=== PATIENT | female | born 1940 | race Caucasian/White ===

== ENCOUNTER 2016-08-29 11:17 | Emergency (ER) | payer MEDICARE, BC ==
[2016-08-29 11:44] VITALS: BP 142/79
--- NOTE | 2016-08-29 12:15 | EDM.PDOC ---
ED HPI GI/ABDOMINAL - General Chief Complaint: Gastrointestinal Problem Stated Complaint: LOWER ABD PAIN Time Seen by Provider: 08/29/16 12:05 Source: Reports: Patient, RN notes reviewed History Limitations: Reports: No limitations - History of Present Illness INITIAL COMMENTS - FREE TEXT/NARRATIVE: 76-year-old female presents emergency department today with complaint of left lower quadrant pain, has been going on for the last couple days is progressively getting worse she denies any other symptoms. - Related Data Allergies/ADRs: Allergies Allergy/AdvReac Type Severity Reaction Status Date / Time clindamycin Allergy Severe Joint Pain Verified 12/25/15 02:05 morphine Allergy Severe Anaphylactic Verified 12/25/15 02:05 Shock nystatin Allergy Intermediate Swelling Verified 12/25/15 02:05 acetaminophen [From NyQuil] Allergy Swelling Verified 12/25/15 02:05 aspirin Allergy Other Verified 12/25/15 02:05 dextromethorphan HBr Allergy Swelling Verified 12/25/15 02:05 [From NyQuil] doxylamine succinate Allergy Swelling Verified 12/25/15 02:05 [From NyQuil] gluten Allergy Cannot Verified 12/25/15 02:05 Remember pseudoephedrine HCl Allergy Swelling Verified 12/25/15 02:05 [From NyQuil] codeine AdvReac Severe Vomiting Verified 12/25/15 02:05 Sulfa (Sulfonamide AdvReac Severe Vomiting Verified 12/25/15 02:05 Antibiotics) celecoxib [From Celebrex] AdvReac Intermediate Abdominal Verified 12/25/15 02:05 Pain erythromycin base AdvReac Intermediate Giddiness Verified 12/25/15 02:05 [Erythromycin Base] tramadol HCl [From Ultram] AdvReac Intermediate Vomiting Verified 12/25/15 02:05 furosemide AdvReac Leg Cramps Verified 12/25/15 02:05 rofecoxib [From Vioxx] AdvReac Nausea and Verified 12/25/15 02:05 Vomiting *aloe plant sterols Allergy Unknown Cannot Uncoded 12/25/15 02:05 Remember *elderberry Allergy Unknown Cannot Uncoded 12/25/15 02:05 Remember *grape seed extract Allergy Unknown Swelling Uncoded 12/25/15 02:05 *olive leaf extract Allergy Unknown Cannot Uncoded 12/25/15 02:05 Remember Home Meds: Home Meds Losartan [Cozaar] 50 mg PO DAILY 06/25/13 [History] Metoprolol Succinate 25 mg PO BID 06/25/13 [History] predniSONE [Prednisone] 1 mg PO DAILY 06/25/13 [History] 5-Hydroxytryptophan [5-Htp] 50 mg PO BEDTIME 05/28/14 [History] Acetylcysteine [H-Plujgb-u-Cysteine] 600 mg PO BID 05/28/14 [History] Melba/Cell/Lipas/Malt/Prt/Lac/in [Digestive Enzymes Capsule] 1 each PO BID [History] Biotin 10 mg PO DAILY 05/28/14 [History] Calcium Carbonate [Calcium] 500 mg PO BID 05/28/14 [History] Cholecalciferol (Vitamin D3) [Vitamin D3] 2,000 unit PO BID 05/28/14 [History] Glucosamine Sulfate 500 mg PO TID 05/28/14 [History] Lactobac Cmb #3/Fos/Pantethine [Probiotic & Acidophilus] 1 each PO BID 05/28/14 [History] Lycopene 10 mg PO DAILY 05/28/14 [History] Magnesium Citrate [Citroma] 300 ml PO DAILY 05/28/14 [History] Malic Acid 800 mg PO BID 05/28/14 [History] Methylsulfonylmethane [MSM] 1,000 mg PO TID 05/28/14 [History] Milk Thistle Seed Extract [Milk Thistle] 200 mg PO BID 05/28/14 [History] Multivitamin [Multi-Vitamin Daily] 1 each PO DAILY 05/28/14 [History] Nattokinaise 1 cap PO DAILY 05/28/14 [History] Nitroglycerin [Nitrostat] 0.4 mg SL ASDIRECTED PRN 05/28/14 [History] [place]-3 Fatty Acids [[place]-3] 1,000 mg PO DAILY 05/28/14 [History] Strontium Gluconate 680 mg PO DAILY 05/28/14 [History] Taurine 500 mg PO BID 05/28/14 [History] Turmeric [Curcumin] 1 gm MC BID 05/28/14 [History] Ubidecarenone [Coenzyme Q10] 100 mg PO DAILY 05/28/14 [History] Vitamin E Mixed [Vitamin E] 400 unit PO DAILY 05/28/14 [History] guaiFENesin [Guaifenesin] 400 mg PO TID 05/28/14 [History] *Nattokinaise Plus K2 50mg 100 mg PO DAILY 12/25/15 [History] Hyalur Ac/Chond Sul/Colg II/AA [Hyaluronic Acid 40 MG] 1 each PO BID 12/25/15 [ History] Melatonin 3 mg PO BEDTIME 12/25/15 [History] Ondansetron [Zofran ODT] 4 mg PO Q6H PRN #15 tab.dis 12/25/15 [Rx] Past Medical History HEENT History: Reports: Epistaxis, Impaired vision Cardiovascular History: Reports: Afib, CAD, High cholesterol, Hypertension, Other (see below) Other Cardiovascular History: states leaking aortic valve Respiratory History: Reports: SOB Gastrointestinal History: Reports: GERD, Hiatal hernia 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: Musculoskeletal History: Reports: Fibromyalgia, Osteoarthritis, Other (see below ) Other Musculoskeletal History: polymyalgia Endocrine/Metabolic History: Reports: Hypothyroidism Hematologic History: Reports: Blood transfusion(s) - Infectious Disease History Infectious Disease History: Reports: Chicken pox, Measles, Mumps - Past Surgical History HEENT Surgical History: Reports: Oral surgery, Tonsillectomy Cardiovascular Surgical History: Reports: Coronary artery stent, Vascular surgery GI Surgical History: Reports: Appendectomy, Colon Neurological Surgical History: Reports: Lumbar spine Social & Family History - Family History Psychiatric: Reports: Bipolar - Tobacco Use Smoking Status *Q: Never Smoker Second Hand Smoke Exposure: No - Caffeine Use Caffeine Use: Reports: Tea - Alcohol Use Days Per Week of Alcohol Use: 0 - Recreational Drug Use Recreational Drug Use: No ED ROS GENERAL - Review of Systems Review Of Systems: See Below Constitutional: Reports: no symptoms HEENT: Reports: No symptoms Respiratory: Reports: No Symptoms Cardiovascular: Reports: No symptoms GI/Abdominal: Reports: Abdominal pain, Flatus. Denies: Bloody stool, Constipation, Diarrhea, Nausea, Vomiting : Reports: no symptoms Musculoskeletal: Reports: no symptoms Skin: Reports: no symptoms ED EXAM, GI/ABD - Physical Exam Exam: See Below Text/Narrative:: General: Female, not in any distress, alert and oriented x3 HEENT: head is atraumatic normocephalic, eyes pupils equal round reactive to light and accommodation sclera clear no conjunctivitis appreciated. Ears tympanic membranes clear and benjamin landmarks and light reflex are present bilaterally canals are clear. Nose no septal deviation, nares are clear, no blood present. Mouth mucosa is moist and pink no erythema or exudate noted in soft palate, tongue is midline uvula is midline, dentition is intact. Neck: Supple no thyromegaly no tracheal deviation. Nodes: Cervical nodes subclavicular nodes nontender no palpable lymphadenopathy noted. Lungs: clear to auscultation bilaterally with symmetrical respirations, no adventitious noise appreciated. CV: Regular rate and rhythm S1 and S2 appreciated no murmurs rubs or gallops noted. Abdomen: Soft, tender left lower quadrant, no palpable masses or organomegaly appreciated, no distention no guarding bowel sounds are present, surgical scars clean dry and intact. Neuro: Cranial nerves II through XII grossly intact Skin: Warm and dry, intact Extremities: No lower extremity edema appreciated Course - Vital Signs Last Recorded V/S: Last Vital Signs Temp 97.0 F 08/29/16 11:43 Pulse 74 08/29/16 11:43 Resp 16 08/29/16 11:43 BP 142/79 H 08/29/16 11:43 Pulse Ox 93 L 08/29/16 11:43 - Orders/Labs/Meds Orders: Active Orders 24 hr Category Date Time Status UA W/MICROSCOPIC [URIN] Urgent Lab 08/29/16 12:12 Uncollected Labs: Laboratory Tests 08/29/16 08/29/16 Range/Units 12:16 12:16 WBC 7.2 (4.5-11.0) K/uL RBC 4.65 (3.30-5.50) M/uL Hgb 14.0 (12.0-15.0) g/dL Hct 42.8 (36.0-48.0) % MCV 92 (80-98) fL MCH 30 (27-31) pg MCHC 33 (32-36) % Plt Count 200 (150-400) K/uL Neut % (Auto) 70 H (36-66) % Lymph % (Auto) 19 L (24-44) % Early % (Auto) 10 H (2-6) % Eos % (Auto) 1 L (2-4) % Baso % (Auto) 0 (0-1) % Sodium 143 (140-148) mmol/L Potassium 3.9 (3.6-5.2) mmol/L Chloride 105 (100-108) mmol/L Carbon Dioxide 31 (21-32) mmol/L Anion Gap 7.5 (5.0-14.0) mmol/L BUN 14 (7-18) mg/dL Creatinine 0.8 (0.6-1.0) mg/dL Est Cr Clr Drug Dosing 54.55 mL/min Estimated GFR (MDRD) > 60 (>60) Glucose 112 H (74-106) mg/dL Calcium 9.1 (8.5-10.1) mg/dL Total Bilirubin 0.5 (0.2-1.0) mg/dL AST 19 (15-37) U/L ALT 27 (12-78) U/L Alkaline Phosphatase 46 (46-116) U/L Total Protein 6.9 (6.4-8.2) g/dL Albumin 3.3 L (3.4-5.0) g/dL Globulin 3.6 H (2.3-3.5) g/dL Albumin/Globulin Ratio 0.9 L (1.2-2.2) Lipase 151 (73-393) U/L Departure - Departure Time of Disposition: 13:30 Disposition: Home, Self-Care 01 Condition: good Clinical Impression: Epiploic appendagitis Forms: ED Department Discharge Additional Instructions: Take ibuprofen 600 mg 3 times a day for the next 5 days, Please followup with your primary care provider in 3-5 days if not better, please call return to the emergency department with worsening of symptoms. - My Orders Last 24 Hours: My Active Orders 08/29/16 12:12 UA W/MICROSCOPIC [URIN] Urgent - Assessment/Plan Last 24 Hours: My Active Orders 08/29/16 12:12 UA W/MICROSCOPIC [URIN] Urgent Plan: Assessment Acuity = acute Site and laterality = epiplotic appendicitis Etiology = unknown etiology Manifestations = left lower quadrant pain Location of injury = from Lab values = CBC, CMP within normal limits CT scan describes a lesion about Plan Plan to treat with ibuprofen 600 mg 2 times a day follow up with primary care in 3-5 days if no improvement Patient was in agreement with the plan all questions were answered, they were instructed to return to the emergency department or call for worsening symptoms. This note was dictated using [employer] voice recognition software please call with any questions.
--- NOTE | 2016-08-29 12:50 | CT ---
CT abdomen and pelvis without contrast. Total DLP 959. Findings: No focal consolidation. Hepatomegaly. Small hypodensity within the liver. Gallbladder with in normal limits. This is similar compared to remote exam. No hydronephrosis. Adrenal glands are wit hin normal limits. Spleen within normal limits. Pancreas within normal limits. Post surgical changes within the small bowel. Terminal ileum within normal limits. The appendix is nonvisualized. There i s stranding minimal amount of fluid about a focal region of fat adjacent to the sigmoid colon.No rebeca e air. Small umbilical hernia with colon protruding into it. Bladder unremarkable. Atherosclerotic n onaneurysmal aorta. Degenerative changes of both hips. Impression: 1. Findings indicate acute epiploic appendagitis at the sigmoid colon. 2. Hepatomegaly.
== END 2016-08-29 13:42 | disposition home or self-care (01) ==
LOC: JP.ED 11:17
DX: K63.89 Other specified diseases of intestine (principal); I48.91 Unspecified atrial fibrillation; I25.10 Atherosclerotic heart disease of native coronary artery without angina pectoris; E78.00 Pure hypercholesterolemia, unspecified; I10 Essential (primary) hypertension; K21.9 Gastro-esophageal reflux disease without esophagitis; K44.9 Diaphragmatic hernia without obstruction or gangrene; M79.7 Fibromyalgia; M19.90 Unspecified osteoarthritis, unspecified site; E03.9 Hypothyroidism, unspecified; Z88.8 Allergy status to other drugs, medicaments and biological substances; Z79.899 Other long term (current) drug therapy; Z95.5 Presence of coronary angioplasty implant and graft
CPT/HCPCS: 36415; 74176; 74176-26; 80053; 83690; 85025; 99283; 99284-25

== ENCOUNTER 2017-05-05 13:23 | Emergency (ER) | payer MEDICARE, BC ==
[2017-05-05] MEDS ORDERED: Sodium Chloride 0.9% 1,000 ML IV SCH (14:30)
--- NOTE | 2017-05-05 15:39 | EDM.PDOC ---
ED HPI GENERAL MEDICAL PROBLEM - General Chief Complaint: Chest Pain Stated Complaint: A-FIB Time Seen by Provider: 05/05/17 13:45 Source of Information: Reports: Patient History Limitations: Reports: No Limitations - History of Present Illness INITIAL COMMENTS - FREE TEXT/NARRATIVE: pt developed an episode last nit when she had chest pain at about a 8 and she felt like she was back in atrial fib. She does have a past history of atrial fib. She did not get sweaty. She felt like the pain lasted for a while and then she went to bed and slept all nite. She got up this am she felt like her rate was about 120. She was slightly sob. She did not have pleuritic chest pain. She had a stress test slightly over 1 year ago and it was normal Onset: Other ( last nite her rate was quite rapid. ) Duration: Hour(s): Location: Reports: Chest, Other ( rapid heart beat. ) Associated Symptoms: Reports: Chest Pain, Shortness of Breath Chest Pain Score (Numeric/FACES): 2 - Related Data Allergies Allergy/AdvReac Type Severity Reaction Status Date / Time clindamycin Allergy Severe Joint Pain Verified 12/25/15 02:05 morphine Allergy Severe Anaphylactic Verified 12/25/15 02:05 Shock nystatin Allergy Intermediate Swelling Verified 12/25/15 02:05 acetaminophen [From NyQuil] Allergy Swelling Verified 12/25/15 02:05 aspirin Allergy Other Verified 12/25/15 02:05 dextromethorphan HBr Allergy Swelling Verified 12/25/15 02:05 [From NyQuil] doxylamine succinate Allergy Swelling Verified 12/25/15 02:05 [From NyQuil] gluten Allergy Cannot Verified 12/25/15 02:05 Remember pseudoephedrine HCl Allergy Swelling Verified 12/25/15 02:05 [From NyQuil] codeine AdvReac Severe Vomiting Verified 12/25/15 02:05 Sulfa (Sulfonamide AdvReac Severe Vomiting Verified 12/25/15 02:05 Antibiotics) celecoxib [From Celebrex] AdvReac Intermediate Abdominal Verified 12/25/15 02:05 Pain erythromycin base AdvReac Intermediate Giddiness Verified 12/25/15 02:05 [Erythromycin Base] tramadol HCl [From Ultram] AdvReac Intermediate Vomiting Verified 12/25/15 02:05 furosemide AdvReac Leg Cramps Verified 12/25/15 02:05 rofecoxib [From Vioxx] AdvReac Nausea and Verified 12/25/15 02:05 Vomiting *aloe plant sterols Allergy Unknown Cannot Uncoded 12/25/15 02:05 Remember *elderberry Allergy Unknown Cannot Uncoded 12/25/15 02:05 Remember *grape seed extract Allergy Unknown Swelling Uncoded 12/25/15 02:05 *olive leaf extract Allergy Unknown Cannot Uncoded 12/25/15 02:05 Remember Home Meds: Home Meds Losartan [Cozaar] 50 mg PO DAILY 06/25/13 [History] Metoprolol Succinate 25 mg PO BID 06/25/13 [History] predniSONE [Prednisone] 1 mg PO DAILY 06/25/13 [History] 5-Hydroxytryptophan [5-Htp] 50 mg PO BEDTIME 05/28/14 [History] Acetylcysteine [U-Kgauxz-h-Cysteine] 600 mg PO BID 05/28/14 [History] Melba/Cell/Lipas/Malt/Prt/Lac/in [Digestive Enzymes Capsule] 1 each PO BID [History] Biotin 10 mg PO DAILY 05/28/14 [History] Calcium Carbonate [Calcium] 500 mg PO BID 05/28/14 [History] Cholecalciferol (Vitamin D3) [Vitamin D3] 2,000 unit PO BID 05/28/14 [History] Glucosamine Sulfate 500 mg PO TID 05/28/14 [History] Lactobac Cmb #3/Fos/Pantethine [Probiotic & Acidophilus] 1 each PO BID 05/28/14 [History] Lycopene 10 mg PO DAILY 05/28/14 [History] Magnesium Citrate [Citroma] 300 ml PO DAILY 05/28/14 [History] Malic Acid 800 mg PO BID 05/28/14 [History] Methylsulfonylmethane [MSM] 1,000 mg PO TID 05/28/14 [History] Milk Thistle Seed Extract [Milk Thistle] 200 mg PO BID 05/28/14 [History] Multivitamin [Multi-Vitamin Daily] 1 each PO DAILY 05/28/14 [History] Nattokinaise 1 cap PO DAILY 05/28/14 [History] Nitroglycerin [Nitrostat] 0.4 mg SL ASDIRECTED PRN 05/28/14 [History] [place]-3 Fatty Acids [[place]-3] 1,000 mg PO DAILY 05/28/14 [History] Strontium Gluconate 680 mg PO DAILY 05/28/14 [History] Taurine 500 mg PO BID 05/28/14 [History] Turmeric [Curcumin] 1 gm MC BID 05/28/14 [History] Ubidecarenone [Coenzyme Q10] 100 mg PO DAILY 05/28/14 [History] Vitamin E Mixed [Vitamin E] 400 unit PO DAILY 05/28/14 [History] guaiFENesin [Guaifenesin] 400 mg PO TID 05/28/14 [History] *Nattokinaise Plus K2 50mg 100 mg PO DAILY 12/25/15 [History] Hyalur Ac/Chond Sul/Colg II/AA [Hyaluronic Acid 40 MG] 1 each PO BID 12/25/15 [ History] Melatonin 3 mg PO BEDTIME 12/25/15 [History] Past Medical History HEENT History: Reports: Epistaxis, Impaired Vision Cardiovascular History: Reports: Afib, CAD, High Cholesterol, Hypertension, Other (See Below) Other Cardiovascular History: states leaking aortic valve Respiratory History: Reports: SOB Gastrointestinal History: Reports: GERD, Hiatal Hernia 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: Musculoskeletal History: Reports: Fibromyalgia, Osteoarthritis, Other (See Below ) Other Musculoskeletal History: polymyalgia Endocrine/Metabolic History: Reports: Hypothyroidism Hematologic History: Reports: Blood Transfusion(s) - Infectious Disease History Infectious Disease History: Reports: Chicken Pox, Measles, Mumps - Past Surgical History HEENT Surgical History: Reports: Oral Surgery, Tonsillectomy Cardiovascular Surgical History: Reports: Coronary Artery Stent, Vascular Surgery Neurological Surgical History: Reports: Lumbar Spine Social & Family History - Family History Psychiatric: Reports: Bipolar - Tobacco Use Smoking Status *Q: Never Smoker Second Hand Smoke Exposure: No - Caffeine Use Caffeine Use: Reports: Coffee - Alcohol Use Days Per Week of Alcohol Use: 0 - Recreational Drug Use Recreational Drug Use: No ED ROS GENERAL - Review of Systems Review Of Systems: See Below Constitutional: Reports: No Symptoms HEENT: Reports: No Symptoms Respiratory: Reports: Shortness of Breath Cardiovascular: Reports: Chest Pain, Other ( the pain lasted for about 1 hour. ) Endocrine: Reports: No Symptoms GI/Abdominal: Reports: No Symptoms : Reports: No Symptoms Musculoskeletal: Reports: No Symptoms Skin: Reports: No Symptoms ED EXAM, GENERAL - Physical Exam Exam: See Below Free Text/Narrative:: pt arrived stating that she had a rapid rhythm and some chest pain last nite. She has very little discomfort at this time. She has a heart rate of 68. Exam Limited By: No Limitations General Appearance: Alert, No Apparent Distress, Anxious Ears: Normal TMs Nose: Normal Inspection Throat/Mouth: Normal Inspection Head: Atraumatic Neck: Normal Inspection Respiratory/Chest: No Respiratory Distress, Other ( Pt has no pleuritic chest pain) Cardiovascular: Regular Rate, Rhythm, Other ( rate is 68 with a sinus rhythm) GI/Abdominal: Soft, Non-Tender (Female) Exam: Deferred Rectal (Female) Exam: Deferred Back Exam: Normal Inspection Extremities: Normal Inspection, Other ( no swelling of leg tenderness. ) Neurological: Alert, Oriented, Normal Cognition Psychiatric: Normal Affect Course - Vital Signs Last Recorded V/S: Last Vital Signs Temp 36.7 C 05/05/17 13:46 Pulse 60 05/05/17 16:10 Resp 14 05/05/17 16:10 BP 178/86 H 05/05/17 16:10 Pulse Ox 98 05/05/17 16:10 - Orders/Labs/Meds Orders: Active Orders 24 hr Category Date Time Status Chest 1V Frontal [CR] Stat Exams 05/05/17 15:04 Taken Labs: Laboratory Tests 05/05/17 05/05/17 05/05/17 Range/Units 13:35 13:45 13:45 WBC 9.5 (4.5-11.0) K/uL RBC 5.08 (3.30-5.50) M/uL Hgb 15.1 H (12.0-15.0) g/dL Hct 46.3 (36.0-48.0) % MCV 91 (80-98) fL MCH 30 (27-31) pg MCHC 33 (32-36) % Plt Count 257 (150-400) K/uL Neut % (Auto) 71 H (36-66) % Lymph % (Auto) 20 L (24-44) % Lee % (Auto) 9 H (2-6) % Eos % (Auto) 1 L (2-4) % Baso % (Auto) 0 (0-1) % PT (9.5-12.0) sec INR (0.80-1.20) APTT (27.0-36.0) sec D-Dimer, Quantitative (0.0-400.0) ng/mL Sodium 142 (140-148) mmol/L Potassium 3.9 (3.6-5.2) mmol/L Chloride 107 (100-108) mmol/L Carbon Dioxide 26 (21-32) mmol/L Anion Gap 8.6 (5.0-14.0) mmol/L BUN 20 H (7-18) mg/dL Creatinine 0.9 (0.6-1.0) mg/dL Est Cr Clr Drug Dosing 47.45 mL/min Estimated GFR (MDRD) > 60 (>60) Glucose 101 (74-106) mg/dL Calcium 9.5 (8.5-10.1) mg/dL Total Bilirubin 0.4 (0.2-1.0) mg/dL AST 26 (15-37) U/L ALT 32 (12-78) U/L Alkaline Phosphatase 65 (46-116) U/L Creatine Kinase 81 (26-192) U/L Troponin I 0.022 (0.000-0.056) ng/mL Total Protein 7.0 (6.4-8.2) g/dL Albumin 3.5 (3.4-5.0) g/dL Globulin 3.5 (2.3-3.5) g/dL Albumin/Globulin Ratio 1.0 L (1.2-2.2) Urine Color Urine Appearance Urine pH (4.5-8.0) Ur Specific [place] (1.008-1.030) Urine Protein (NEGATIVE) mg/dL Urine Glucose (UA) (NEGATIVE) mg/dL Urine Ketones (NEGATIVE) mg/dL Urine Occult Blood (NEGATIVE) Urine Nitrite (NEGATIVE) Urine Bilirubin (NEGATIVE) Urine Urobilinogen (NORMAL) mg/dL Ur Leukocyte Esterase (NEGATIVE) Urine RBC (0-5) Urine WBC (0-5) Ur Epithelial Cells Amorphous Sediment Urine Bacteria Urine Mucus 05/05/17 05/05/17 05/05/17 Range/Units 13:45 15:38 15:38 WBC (4.5-11.0) K/uL RBC (3.30-5.50) M/uL Hgb (12.0-15.0) g/dL Hct (36.0-48.0) % MCV (80-98) fL MCH (27-31) pg MCHC (32-36) % Plt Count (150-400) K/uL Neut % (Auto) (36-66) % Lymph % (Auto) (24-44) % Lee % (Auto) (2-6) % Eos % (Auto) (2-4) % Baso % (Auto) (0-1) % PT 11.0 (9.5-12.0) sec INR 1.03 (0.80-1.20) APTT 23.8 L (27.0-36.0) sec D-Dimer, Quantitative 676 H (0.0-400.0) ng/mL Sodium (140-148) mmol/L Potassium (3.6-5.2) mmol/L Chloride (100-108) mmol/L Carbon Dioxide (21-32) mmol/L Anion Gap (5.0-14.0) mmol/L BUN (7-18) mg/dL Creatinine (0.6-1.0) mg/dL Est Cr Clr Drug Dosing mL/min Estimated GFR (MDRD) (>60) Glucose (74-106) mg/dL Calcium (8.5-10.1) mg/dL Total Bilirubin (0.2-1.0) mg/dL AST (15-37) U/L ALT (12-78) U/L Alkaline Phosphatase (46-116) U/L Creatine Kinase (26-192) U/L Troponin I (0.000-0.056) ng/mL Total Protein (6.4-8.2) g/dL Albumin (3.4-5.0) g/dL Globulin (2.3-3.5) g/dL Albumin/Globulin Ratio (1.2-2.2) Urine Color Yellow Urine Appearance Cloudy Urine pH 5.0 (4.5-8.0) Ur Specific [place] 1.015 (1.008-1.030) Urine Protein Negative (NEGATIVE) mg/dL Urine Glucose (UA) Normal (NEGATIVE) mg/dL Urine Ketones Negative (NEGATIVE) mg/dL Urine Occult Blood Negative (NEGATIVE) Urine Nitrite Negative (NEGATIVE) Urine Bilirubin Negative (NEGATIVE) Urine Urobilinogen Normal (NORMAL) mg/dL Ur Leukocyte Esterase Large (NEGATIVE) Urine RBC 0-5 (0-5) Urine WBC 50-75 H (0-5) Ur Epithelial Cells Many Amorphous Sediment Not seen Urine Bacteria Moderate Urine Mucus Rare 05/05/17 Range/Units 15:38 WBC (4.5-11.0) K/uL RBC (3.30-5.50) M/uL Hgb (12.0-15.0) g/dL Hct (36.0-48.0) % MCV (80-98) fL MCH (27-31) pg MCHC (32-36) % Plt Count (150-400) K/uL Neut % (Auto) (36-66) % Lymph % (Auto) (24-44) % Lee % (Auto) (2-6) % Eos % (Auto) (2-4) % Baso % (Auto) (0-1) % PT (9.5-12.0) sec INR (0.80-1.20) APTT (27.0-36.0) sec D-Dimer, Quantitative (0.0-400.0) ng/mL Sodium (140-148) mmol/L Potassium (3.6-5.2) mmol/L Chloride (100-108) mmol/L Carbon Dioxide (21-32) mmol/L Anion Gap (5.0-14.0) mmol/L BUN (7-18) mg/dL Creatinine (0.6-1.0) mg/dL Est Cr Clr Drug Dosing mL/min Estimated GFR (MDRD) (>60) Glucose (74-106) mg/dL Calcium (8.5-10.1) mg/dL Total Bilirubin (0.2-1.0) mg/dL AST (15-37) U/L ALT (12-78) U/L Alkaline Phosphatase (46-116) U/L Creatine Kinase (26-192) U/L Troponin I 0.022 (0.000-0.056) ng/mL Total Protein (6.4-8.2) g/dL Albumin (3.4-5.0) g/dL Globulin (2.3-3.5) g/dL Albumin/Globulin Ratio (1.2-2.2) Urine Color Urine Appearance Urine pH (4.5-8.0) Ur Specific [place] (1.008-1.030) Urine Protein (NEGATIVE) mg/dL Urine Glucose (UA) (NEGATIVE) mg/dL Urine Ketones (NEGATIVE) mg/dL Urine Occult Blood (NEGATIVE) Urine Nitrite (NEGATIVE) Urine Bilirubin (NEGATIVE) Urine Urobilinogen (NORMAL) mg/dL Ur Leukocyte Esterase (NEGATIVE) Urine RBC (0-5) Urine WBC (0-5) Ur Epithelial Cells Amorphous Sediment Urine Bacteria Urine Mucus Meds: Medications Discontinued Medications Generic Name Dose Route Start Last Admin Trade Name Freq PRN Reason Stop Dose Admin Sodium Chloride 1,000 mls @ 999 mls/hr 05/05/17 14:30 05/05/17 14:30 Normal Saline IV 999 mls/hr ASDIRECTED MARCI Administration - Re-Assessments/Exams Free Text/Narrative Re-Assessment/Exam: 05/05/17 16:28 Pt had 2 trops while here and each was normal. her rhythm remained stable. Her chest xray looked good. Her ddimer was not sigficantly elevated. She was walked and her rate and rhythm was good. Departure - Departure Time of Disposition: 16:29 Disposition: Home, Self-Care 01 Condition: Fair Clinical Impression: Episodic atrial fibrillation, Atypical chest pain Instructions: Nonspecific Chest Pain Referrals: Seth Veliz MD [Primary Care Provider] - Forms: ED Department Discharge Care Plan Goals: Contact industrial education instructor in [place]. Pt needs a event recorder and a repeat stress susy, cont same meds. - My Orders Last 24 Hours: My Active Orders 05/05/17 15:04 Chest 1V Frontal [CR] Stat - Assessment/Plan Last 24 Hours: My Active Orders 05/05/17 15:04 Chest 1V Frontal [CR] Stat
[2017-05-05 16:12] VITALS: BP 178/86
--- NOTE | 2017-05-07 09:49 | CR ---
Chest 1V Frontal HISTORY: Chest pain COMPARISON: 08/15/2010 CT scan and chest radiograph 09/16/2010. FINDINGS: Slightly rotated film. Cardiac size is stable. No focal infiltrates or effusions. No acute congestive change.
== END 2017-05-05 16:36 | disposition home or self-care (01) ==
LOC: JP.ED 13:23
DX: I48.91 Unspecified atrial fibrillation (principal); R07.89 Other chest pain; E78.00 Pure hypercholesterolemia, unspecified; I10 Essential (primary) hypertension; K21.9 Gastro-esophageal reflux disease without esophagitis; Z88.5 Allergy status to narcotic agent; Z88.8 Allergy status to other drugs, medicaments and biological substances; Z88.2 Allergy status to sulfonamides; Z79.899 Other long term (current) drug therapy
CPT/HCPCS: 36415; 71010; 80053; 81001; 82550; 84484; 85025; 85379; 85610; 85730; 96360; 99285; J7040; 99284

== ENCOUNTER 2017-08-30 18:40 | Emergency (ER) | payer MEDICARE, BC ==
--- NOTE | 2017-08-30 19:58 | EDM.PDOC ---
ED HPI GENERAL MEDICAL PROBLEM - General Chief Complaint: Cardiovascular Problem Stated Complaint: AFIB Time Seen by Provider: 08/30/17 19:15 Source of Information: Reports: Patient History Limitations: Reports: No Limitations - History of Present Illness INITIAL COMMENTS - FREE TEXT/NARRATIVE: pt arrived with a history of going into a rapid rhythm in the middle of the nite. At 3 pm she felt like her rhythm changed about 3 pm. Onset: Other (last nite. ) Duration: Hour(s): Location: Reports: Chest Associated Symptoms: Reports: Other (rapid rhythm) Denies Pain Score (Numeric/FACES): 0 - Related Data Allergies Allergy/AdvReac Type Severity Reaction Status Date / Time clindamycin Allergy Severe Joint Pain Verified 08/30/17 19:17 morphine Allergy Severe Anaphylactic Verified 08/30/17 19:17 Shock nystatin Allergy Intermediate Swelling Verified 08/30/17 19:17 acetaminophen [From NyQuil] Allergy Swelling Verified 12/25/15 02:05 aspirin Allergy Other Verified 08/30/17 19:17 casein Allergy Edema Verified 08/30/17 19:17 dextromethorphan HBr Allergy Swelling Verified 08/30/17 19:17 [From NyQuil] doxylamine succinate Allergy Swelling Verified 08/30/17 19:17 [From NyQuil] gluten Allergy Vomiting Verified 08/30/17 19:17 pseudoephedrine HCl Allergy Swelling Verified 08/30/17 19:17 [From NyQuil] codeine AdvReac Severe Vomiting Verified 08/30/17 19:17 Sulfa (Sulfonamide AdvReac Severe Vomiting Verified 08/30/17 19:17 Antibiotics) celecoxib [From Celebrex] AdvReac Intermediate Abdominal Verified 08/30/17 19:17 Pain erythromycin base AdvReac Intermediate Giddiness Verified 08/30/17 19:17 [Erythromycin Base] tramadol HCl [From Ultram] AdvReac Intermediate Vomiting Verified 08/30/17 19:17 furosemide AdvReac Leg Cramps Verified 08/30/17 19:17 rofecoxib [From Vioxx] AdvReac Nausea and Verified 08/30/17 19:17 Vomiting *aloe plant sterols Allergy Unknown Cannot Uncoded 12/25/15 02:05 Remember *elderberry Allergy Unknown Cannot Uncoded 12/25/15 02:05 Remember *grape seed extract Allergy Unknown Swelling Uncoded 12/25/15 02:05 *olive leaf extract Allergy Unknown Cannot Uncoded 12/25/15 02:05 Remember Home Meds: Home Meds predniSONE [Prednisone] 1 mg PO DAILY 06/25/13 [History] 5-Hydroxytryptophan [5-Htp] 100 mg PO BID 05/28/14 [History] Calcium Carbonate [Calcium] 500 mg PO BID 05/28/14 [History] Glucosamine Sulfate 500 mg PO TID 05/28/14 [History] Nitroglycerin [Nitrostat] 0.4 mg SL ASDIRECTED PRN 05/28/14 [History] Ubidecarenone [Coenzyme Q10] 100 mg PO BID 05/28/14 [History] guaiFENesin [Guaifenesin] 400 mg PO TID 05/28/14 [History] *Estriol/Progesterone 1 tab PO BID 08/30/17 [History] *[place] Oil 1 cap PO BID 08/30/17 [History] Aspirin [Halfprin] 1 tab PO DAILY 08/30/17 [History] Clopidogrel [Plavix] 1 tab PO DAILY 08/30/17 [History] L.acidoph,Paracasei, B.lactis [Probiotic] 1 tab PO BID 08/30/17 [History] Magnesium Citrate 400 mg PO DAILY 08/30/17 [History] Metoprolol Succinate [Toprol XL 100mg] 1 tab PO DAILY 08/30/17 [History] Multivitamin with Minerals [Multiple Vitamin] 1 tab PO DAILY 08/30/17 [History] Warfarin [Coumadin] 3.75 tab PO DAILY 08/30/17 [History] Warfarin [Coumadin] 5 mg PO DAILY 08/30/17 [History] atorvaSTATin [Lipitor] 1 tab PO DAILY 08/30/17 [History] Past Medical History HEENT History: Reports: Epistaxis, Impaired Vision Cardiovascular History: Reports: Afib, CAD, High Cholesterol, Hypertension, Other (See Below) Other Cardiovascular History: states leaking aortic valve Respiratory History: Reports: SOB Gastrointestinal History: Reports: GERD, Hiatal Hernia 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: Musculoskeletal History: Reports: Fibromyalgia, Osteoarthritis, Other (See Below ) Other Musculoskeletal History: polymyalgia Endocrine/Metabolic History: Reports: Hypothyroidism Hematologic History: Reports: Anticoagulation Therapy, Blood Transfusion(s) - Infectious Disease History Infectious Disease History: Reports: Chicken Pox, Measles, Mumps - Past Surgical History HEENT Surgical History: Reports: Oral Surgery, Tonsillectomy Cardiovascular Surgical History: Reports: Coronary Artery Stent, Vascular Surgery GI Surgical History: Reports: Other (See Below) Other GI Surgeries/Procedures: 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 Neurological Surgical History: Reports: Lumbar Spine Social & Family History - Family History Psychiatric: Reports: Bipolar - Tobacco Use Smoking Status *Q: Never Smoker Second Hand Smoke Exposure: No - Caffeine Use Caffeine Use: Reports: Coffee - Alcohol Use Days Per Week of Alcohol Use: 0 - Recreational Drug Use Recreational Drug Use: No ED ROS GENERAL - Review of Systems Review Of Systems: See Below Constitutional: Reports: No Symptoms HEENT: Reports: No Symptoms Respiratory: Reports: No Symptoms Cardiovascular: Reports: No Symptoms Endocrine: Reports: No Symptoms GI/Abdominal: Reports: No Symptoms : Reports: No Symptoms Musculoskeletal: Reports: No Symptoms Skin: Reports: No Symptoms ED EXAM, GENERAL - Physical Exam Exam: See Below Free Text/Narrative:: pt arrived with a history of several hours of rapid heart beat. She thinks about 3 pm this changed. She is in a sinus rhytm on arrival. Exam Limited By: No Limitations General Appearance: Alert, Anxious Ears: Normal TMs Nose: Normal Inspection Throat/Mouth: Normal Inspection Head: Atraumatic Neck: Normal Inspection Respiratory/Chest: No Respiratory Distress Cardiovascular: Regular Rate, Rhythm, Other ( rate is 60-70. ) GI/Abdominal: Soft, Non-Tender (Female) Exam: Deferred Rectal (Female) Exam: Deferred Back Exam: Normal Inspection Extremities: Other (pt has pluse 2 edema. ) Neurological: Alert, Oriented, Normal Cognition Psychiatric: Normal Affect Course - Vital Signs Last Recorded V/S: Last Vital Signs Temp 37.1 C 08/30/17 19:13 Pulse 60 08/30/17 22:26 Resp 16 08/30/17 22:26 BP 180/94 H 08/30/17 22:26 Pulse Ox 94 L 08/30/17 22:26 - Orders/Labs/Meds Labs: Laboratory Tests 08/30/17 08/30/17 08/30/17 Range/Units 19:52 19:55 19:55 WBC 7.5 (4.5-11.0) K/uL RBC 4.72 (3.30-5.50) M/uL Hgb 13.9 (12.0-15.0) g/dL Hct 42.8 (36.0-48.0) % MCV 91 (80-98) fL MCH 29 (27-31) pg MCHC 33 (32-36) % Plt Count 232 (150-400) K/uL Neut % (Auto) 66 (36-66) % Lymph % (Auto) 24 (24-44) % Hickman % (Auto) 9 H (2-6) % Eos % (Auto) 1 L (2-4) % Baso % (Auto) 0 (0-1) % PT 25.4 H (9.5-12.0) sec INR 2.29 H (0.80-1.20) Sodium 142 (140-148) mmol/L Potassium 3.5 L (3.6-5.2) mmol/L Chloride 105 (100-108) mmol/L Carbon Dioxide 28 (21-32) mmol/L Anion Gap 12.5 (5.0-14.0) mmol/L BUN 15 (7-18) mg/dL Creatinine 1.0 (0.6-1.0) mg/dL Est Cr Clr Drug Dosing 42.70 mL/min Estimated GFR (MDRD) 53 L (>60) Glucose 104 (74-106) mg/dL Calcium 8.6 (8.5-10.1) mg/dL Total Bilirubin 0.3 (0.2-1.0) mg/dL AST 21 (15-37) U/L ALT 30 (12-78) U/L Alkaline Phosphatase 80 (46-116) U/L Troponin I 0.017 (0.000-0.056) ng/mL NT-Pro-B Natriuret Pep (5-450) pg/mL Total Protein 6.6 (6.4-8.2) g/dL Albumin 3.3 L (3.4-5.0) g/dL Globulin 3.3 (2.3-3.5) g/dL Albumin/Globulin Ratio 1.0 L (1.2-2.2) 08/30/17 Range/Units 19:55 WBC (4.5-11.0) K/uL RBC (3.30-5.50) M/uL Hgb (12.0-15.0) g/dL Hct (36.0-48.0) % MCV (80-98) fL MCH (27-31) pg MCHC (32-36) % Plt Count (150-400) K/uL Neut % (Auto) (36-66) % Lymph % (Auto) (24-44) % Hickman % (Auto) (2-6) % Eos % (Auto) (2-4) % Baso % (Auto) (0-1) % PT (9.5-12.0) sec INR (0.80-1.20) Sodium (140-148) mmol/L Potassium (3.6-5.2) mmol/L Chloride (100-108) mmol/L Carbon Dioxide (21-32) mmol/L Anion Gap (5.0-14.0) mmol/L BUN (7-18) mg/dL Creatinine (0.6-1.0) mg/dL Est Cr Clr Drug Dosing mL/min Estimated GFR (MDRD) (>60) Glucose (74-106) mg/dL Calcium (8.5-10.1) mg/dL Total Bilirubin (0.2-1.0) mg/dL AST (15-37) U/L ALT (12-78) U/L Alkaline Phosphatase (46-116) U/L Troponin I (0.000-0.056) ng/mL NT-Pro-B Natriuret Pep 815 H (5-450) pg/mL Total Protein (6.4-8.2) g/dL Albumin (3.4-5.0) g/dL Globulin (2.3-3.5) g/dL Albumin/Globulin Ratio (1.2-2.2) Meds: Medications Discontinued Medications Generic Name Dose Route Start Last Admin Trade Name Freq PRN Reason Stop Dose Admin Bumetanide 1 mg 08/30/17 21:20 08/30/17 21:33 Bumex IM 08/30/17 21:21 1 mg ONETIME ONE Administration Furosemide 40 mg 08/30/17 21:18 Lasix IM 08/30/17 21:19 ONETIME ONE Metoprolol Succinate 100 mg 08/30/17 21:28 08/30/17 21:37 Toprol Xl PO 08/30/17 21:29 100 mg ONETIME ONE Administration - Re-Assessments/Exams Free Text/Narrative Re-Assessment/Exam: 08/30/17 21:32 pt arrived with a history of a rapid heart beat for several hours. She had no chest pain. She has been mildly sob and her legs have been swelling more. Departure - Departure Time of Disposition: 21:34 Disposition: Home, Self-Care 01 Condition: Fair Clinical Impression: Elevated brain natriuretic peptide (BNP) level, Atrial fibrillation Instructions: Natriuretic Peptides Test, Atrial Fibrillation, [id number] Referrals: Seth Veliz MD [Primary Care Provider] - Forms: ED Department Discharge Care Plan Goals: appt with Dr Veliz in 4-5 days, bumex .5 1 tab daily, cont other meds, bp should be reevaluated at the visit with Dr veliz. high k diet.
[2017-08-30] MEDS ORDERED: Furosemide 40 MG/4 ML VIAL IM ONE (21:18)
[2017-08-30] MEDS ORDERED: Bumetanide 1 MG/4 ML MDV IM ONE (21:20)
[2017-08-30] MEDS ORDERED: Metoprolol Succinate 50 MG Tab.ER PO ONE (21:28)
[2017-08-30 22:27] VITALS: BP 180/94
--- NOTE | 2017-08-31 09:00 | CR ---
Chest 1V Frontal HISTORY: Rapid heart rate. COMPARISON: 05/05/2017 FINDINGS: Cardiac size is mildly enlarged. Very subtle interstitial change could represent mild pulmo nary edema. No dense infiltrates or effusions. Impression: 1. Stable mild cardiomegaly. Borderline congestive change.
== END 2017-08-30 22:36 | disposition home or self-care (01) ==
LOC: JP.ED 18:40
DX: I48.91 Unspecified atrial fibrillation (principal); R79.89 Other specified abnormal findings of blood chemistry; E78.00 Pure hypercholesterolemia, unspecified; I10 Essential (primary) hypertension; E03.9 Hypothyroidism, unspecified; K21.9 Gastro-esophageal reflux disease without esophagitis; Z88.5 Allergy status to narcotic agent; Z88.8 Allergy status to other drugs, medicaments and biological substances; Z88.2 Allergy status to sulfonamides; Z88.1 Allergy status to other antibiotic agents; Z79.899 Other long term (current) drug therapy; Z79.82 Long term (current) use of aspirin
CPT/HCPCS: 36415; 71045; 80053; 83880; 84484; 85025; 85610; 93005; 96372; 99284; A9270; S0171

== ENCOUNTER 2017-09-27 12:20 | Emergency (ER) | payer MEDICARE, BC ==
[2017-09-27 12:47] VITALS: BP 155/73
--- NOTE | 2017-09-27 13:28 | EDM.PDOC ---
ED HPI GENERAL MEDICAL PROBLEM - General Chief Complaint: Cardiovascular Problem Time Seen by Provider: 09/27/17 13:10 Source of Information: Reports: Patient History Limitations: Reports: No Limitations - History of Present Illness INITIAL COMMENTS - FREE TEXT/NARRATIVE: 77-year-old female who has been sick for the past 2-3 weeks with persistent coughing, intermittent low-grade fevers and malaise. Over the past 24-48 hours the cough has worsened to the point where she can't stop, her blood pressure is elevated, and she can't sleep. She had a low-grade fever last evening. Her chest is starting to hurt from coughing. No nausea or vomiting. No sputum production. She is also having problems with intermittent nosebleeds which is chronic. She is a nonsmoker. She does not feel short of breath, just has a persistent cough. Onset: Unknown/Unsure Duration: Week(s): (Been going on for 2-3 weeks) Severity: Moderate Associated Symptoms: Reports: Chest Pain (Musculoskeletal pain from coughing), Fever/Chills, Other (Recurring epistaxis). Denies: Headaches, Nausea/Vomiting, Shortness of Breath, Weakness - Related Data Allergies Allergy/AdvReac Type Severity Reaction Status Date / Time clindamycin Allergy Severe Joint Pain Verified 09/27/17 13:02 morphine Allergy Severe Anaphylactic Verified 09/27/17 13:02 Shock nystatin Allergy Intermediate Swelling Verified 09/27/17 13:02 acetaminophen [From NyQuil] Allergy Swelling Verified 09/27/17 13:02 aspirin Allergy Other Verified 09/27/17 13:02 casein Allergy Edema Verified 09/27/17 13:02 dextromethorphan HBr Allergy Swelling Verified 09/27/17 13:02 [From NyQuil] doxylamine succinate Allergy Swelling Verified 09/27/17 13:02 [From NyQuil] gluten Allergy Vomiting Verified 09/27/17 13:02 pseudoephedrine HCl Allergy Swelling Verified 09/27/17 13:02 [From NyQuil] codeine AdvReac Severe Vomiting Verified 09/27/17 13:02 Sulfa (Sulfonamide AdvReac Severe Vomiting Verified 09/27/17 13:02 Antibiotics) celecoxib [From Celebrex] AdvReac Intermediate Abdominal Verified 09/27/17 13:02 Pain erythromycin base AdvReac Intermediate Giddiness Verified 09/27/17 13:02 [Erythromycin Base] tramadol HCl [From Ultram] AdvReac Intermediate Vomiting Verified 09/27/17 13:02 furosemide AdvReac Leg Cramps Verified 09/27/17 13:02 rofecoxib [From Vioxx] AdvReac Nausea and Verified 09/27/17 13:02 Vomiting *aloe plant sterols Allergy Unknown Cannot Uncoded 12/25/15 02:05 Remember *elderberry Allergy Unknown Cannot Uncoded 12/25/15 02:05 Remember *grape seed extract Allergy Unknown Swelling Uncoded 12/25/15 02:05 *olive leaf extract Allergy Unknown Cannot Uncoded 12/25/15 02:05 Remember Home Meds: Home Meds predniSONE [Prednisone] 1 mg PO DAILY 06/25/13 [History] 5-Hydroxytryptophan [5-Htp] 100 mg PO BID 05/28/14 [History] Calcium Carbonate [Calcium] 500 mg PO BID 05/28/14 [History] Glucosamine Sulfate 500 mg PO TID 05/28/14 [History] Nitroglycerin [Nitrostat] 0.4 mg SL ASDIRECTED PRN 05/28/14 [History] Ubidecarenone [Coenzyme Q10] 100 mg PO BID 05/28/14 [History] guaiFENesin [Guaifenesin] 400 mg PO TID 05/28/14 [History] *Estriol/Progesterone 1 tab PO BID 08/30/17 [History] *[place] Oil 1 cap PO BID 08/30/17 [History] Aspirin [Halfprin] 1 tab PO DAILY 08/30/17 [History] Clopidogrel [Plavix] 1 tab PO DAILY 08/30/17 [History] L.acidoph,Paracasei, B.lactis [Probiotic] 1 tab PO BID 08/30/17 [History] Magnesium Citrate 400 mg PO DAILY 08/30/17 [History] Metoprolol Succinate [Toprol XL 100mg] 1 tab PO DAILY 08/30/17 [History] Multivitamin with Minerals [Multiple Vitamin] 1 tab PO DAILY 08/30/17 [History] Warfarin [Coumadin] 3.75 tab PO DAILY 08/30/17 [History] Warfarin [Coumadin] 5 mg PO DAILY 08/30/17 [History] atorvaSTATin [Lipitor] 1 tab PO DAILY 03/15/18 [History] Past Medical History HEENT History: Reports: Epistaxis, Impaired Vision Cardiovascular History: Reports: Afib, CAD, High Cholesterol, Hypertension, Stents, Other (See Below) Other Cardiovascular History: states leaking aortic valve Respiratory History: Reports: SOB Gastrointestinal History: Reports: GERD, 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 Hernia 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: Musculoskeletal History: Reports: Fibromyalgia, Osteoarthritis, Other (See Below ) Other Musculoskeletal History: polymyalgia Endocrine/Metabolic History: Reports: Hypothyroidism Hematologic History: Reports: Anticoagulation Therapy, Blood Transfusion(s) - Infectious Disease History Infectious Disease History: Reports: Chicken Pox, Measles, Mumps - Past Surgical History HEENT Surgical History: Reports: Oral Surgery, Tonsillectomy Cardiovascular Surgical History: Reports: Coronary Artery Stent, Vascular Surgery GI Surgical History: Reports: Other (See Below) Other GI Surgeries/Procedures: 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 Neurological Surgical History: Reports: Lumbar Spine Social & Family History - Family History Psychiatric: Reports: Bipolar - Tobacco Use Smoking Status *Q: Never Smoker Second Hand Smoke Exposure: No - Caffeine Use Caffeine Use: Reports: Coffee - Alcohol Use Days Per Week of Alcohol Use: 0 - Recreational Drug Use Recreational Drug Use: No ED ROS GENERAL - Review of Systems Review Of Systems: See Below Constitutional: Reports: Fever, Malaise HEENT: Reports: Nosebleed (Chronic and recurring) Respiratory: Reports: Pleuritic Chest Pain, Cough. Denies: Shortness of Breath , Sputum Cardiovascular: Reports: Other (She has a history of atrial fibrillation but no palpitations today, thought she had A. fib last night). Denies: Palpitations GI/Abdominal: Reports: No Symptoms : Reports: No Symptoms Musculoskeletal: Reports: Other (Polymyalgia rheumatica, needs a small amount of prednisone daily) Skin: Reports: No Symptoms Neurological: Denies: Headache Psychiatric: Reports: No Symptoms ED EXAM, GENERAL - Physical Exam Exam: See Below Exam Limited By: No Limitations General Appearance: Alert, Mild Distress (She looks uncomfortable because she has a very persistent cough which is somewhat painful, and also has another persistent mild epistaxis of the right nares) Head: Atraumatic Neck: Normal Inspection Respiratory/Chest: No Respiratory Distress, Decreased Breath Sounds (Patient has diffuse decreased breath sounds but no rales or rhonchi, I do not hear expiratory wheezes except when she is coughing) Cardiovascular: Regular Rate, Rhythm. No: Extra Beats Extremities: Normal Inspection. No: Pedal Edema Neurological: Alert, Oriented Psychiatric: Normal Affect, Anxious Skin Exam: Warm, Dry Course - Vital Signs Last Recorded V/S: Last Vital Signs Temp 98.1 F 09/27/17 13:01 Pulse 66 09/27/17 13:01 Resp 11 L 09/27/17 13:01 BP 155/73 H 09/27/17 13:01 Pulse Ox 96 09/27/17 13:01 - Re-Assessments/Exams Free Text/Narrative Re-Assessment/Exam: 09/27/17 13:27 A foam nares pincer was placed on the nose, a 2 view chest x-ray obtained. 09/27/17 14:12 Chest x-ray looked normal. Patient then admitted that she's been using colloidal silver in her nebulizer for the past several weeks and I recommended against that until she stabilizes. I gave her 60 mg of prednisone a day for the next 5 days along with a course of Zithromax and also benzonatate Perles for cough suppression. She'll return if worsening despite treatment. Departure - Departure Time of Disposition: 14:38 Disposition: Home, Self-Care 01 Condition: Fair Clinical Impression: Bronchitis - Discharge Information Instructions: Acute Bronchitis, Adult, [id number] Referrals: Seth Veliz MD [Primary Care Provider] - Forms: ED Department Discharge Care Plan Goals: I would recommend stopping silver in your nebulizers, and try to suppress your bronchitis with the antibiotics and prednisone while using benzonatate for cough suppression. You can return anytime if you are worsening or develop other concerns.
--- NOTE | 2017-09-27 14:23 | CR ---
Mild cardiomegaly. No focal consolidation. Chronic lung changes.
== END 2017-09-27 14:38 | disposition home or self-care (01) ==
LOC: JP.ED 12:20
DX: J40 Bronchitis, not specified as acute or chronic (principal); E78.00 Pure hypercholesterolemia, unspecified; I10 Essential (primary) hypertension; E03.9 Hypothyroidism, unspecified; Z88.1 Allergy status to other antibiotic agents; Z88.5 Allergy status to narcotic agent; Z88.6 Allergy status to analgesic agent; Z88.8 Allergy status to other drugs, medicaments and biological substances; Z88.2 Allergy status to sulfonamides; Z79.899 Other long term (current) drug therapy; Z79.82 Long term (current) use of aspirin; Z79.01 Long term (current) use of anticoagulants
CPT/HCPCS: 71046; 71046-26; 99284

== ENCOUNTER 2017-10-15 20:05 | Emergency (ER) | payer MEDICARE, BC ==
[2017-10-15] MEDS ORDERED: Sodium Chloride 0.9% 10 ML Syringe FLUSH PRN (21:01)
[2017-10-15] MEDS ORDERED: Amiodarone 150 MG/3 ML SDV IVPUSH ONE (21:04)
[2017-10-15] MEDS ORDERED: Aspirin 81 MG Tab.Chew PO ONE (21:06)
--- NOTE | 2017-10-15 21:07 | EDM.PDOC ---
ED HPI GENERAL MEDICAL PROBLEM - General Chief Complaint: Cardiovascular Problem Stated Complaint: A FIB Time Seen by Provider: 10/15/17 20:53 Source of Information: Reports: Patient, Old Records, RN Notes Reviewed History Limitations: Reports: No Limitations - History of Present Illness INITIAL COMMENTS - FREE TEXT/NARRATIVE: 77-year-old female presents emergency department day complaint of chest pressure and atrial fibrillation, she has a known history of paroxysmal atrial fibrillation is currently on Coumadin recently had difficulty with atrial fibrillation 4 months prior at which time she received 2 stents for coronary artery disease had gone into atrial fibrillation during the procedure DC cardioversion was in affected spontaneously converted then the following morning. At this time she states her chest pressure started about 4:00 this afternoon at which time she took her blood pressure was elevated then took her pulse and realized she was in atrial fibrillation was hoping it would go bite itself unfortunately did not she presented to the emergency department for further evaluation. Head Pain Score (Numeric/FACES): 3 - Related Data Allergies Allergy/AdvReac Type Severity Reaction Status Date / Time clindamycin Allergy Severe Joint Pain Verified 10/15/17 20:21 morphine Allergy Severe Anaphylactic Verified 10/15/17 20:21 Shock nystatin Allergy Intermediate Swelling Verified 10/15/17 20:21 acetaminophen [From NyQuil] Allergy Swelling Verified 10/15/17 20:21 aspirin Allergy Other Verified 10/15/17 20:21 casein Allergy Edema Verified 10/15/17 20:21 dextromethorphan HBr Allergy Swelling Verified 10/15/17 20:21 [From NyQuil] doxylamine succinate Allergy Swelling Verified 10/15/17 20:21 [From NyQuil] gluten Allergy Vomiting Verified 10/15/17 20:21 pseudoephedrine HCl Allergy Swelling Verified 10/15/17 20:21 [From NyQuil] codeine AdvReac Severe Vomiting Verified 10/15/17 20:21 Sulfa (Sulfonamide AdvReac Severe Vomiting Verified 10/15/17 20:21 Antibiotics) celecoxib [From Celebrex] AdvReac Intermediate Abdominal Verified 10/15/17 20:21 Pain erythromycin base AdvReac Intermediate Giddiness Verified 10/15/17 20:21 [Erythromycin Base] tramadol HCl [From Ultram] AdvReac Intermediate Vomiting Verified 10/15/17 20:21 furosemide AdvReac Leg Cramps Verified 10/15/17 20:21 rofecoxib [From Vioxx] AdvReac Nausea and Verified 10/15/17 20:21 Vomiting *aloe plant sterols Allergy Unknown Cannot Uncoded 10/15/17 20:21 Remember *elderberry Allergy Unknown Cannot Uncoded 10/15/17 20:21 Remember *grape seed extract Allergy Unknown Swelling Uncoded 10/15/17 20:21 *olive leaf extract Allergy Unknown Cannot Uncoded 10/15/17 20:21 Remember Home Meds: Home Meds predniSONE [Prednisone] 1 mg PO DAILY 06/25/13 [History] 5-Hydroxytryptophan [5-Htp] 100 mg PO DAILY 05/28/14 [History] Calcium Carbonate [Calcium] 500 mg PO BID 05/28/14 [History] Nitroglycerin [Nitrostat] 0.4 mg SL ASDIRECTED PRN 05/28/14 [History] Ubidecarenone [Coenzyme Q10] 100 mg PO BID 05/28/14 [History] guaiFENesin [Guaifenesin] 400 mg PO TID 05/28/14 [History] *Estriol/Progesterone 1 tab PO BID 08/30/17 [History] *[place] Oil 1 cap PO BID 08/30/17 [History] Aspirin [Halfprin] 1 tab PO DAILY 08/30/17 [History] L.acidoph,Paracasei, B.lactis [Probiotic] 1 tab PO BID 08/30/17 [History] Magnesium Citrate 400 mg PO DAILY 08/30/17 [History] Metoprolol Succinate [Toprol XL 100mg] 1 tab PO DAILY 08/30/17 [History] Multivitamin with Minerals [Multiple Vitamin] 1 tab PO DAILY 08/30/17 [History] Warfarin [Coumadin] 5 tab PO DAILY 08/30/17 [History] atorvaSTATin [Lipitor] 1 tab PO DAILY 08/30/17 [History] Losartan [Cozaar] 50 mg PO DAILY 10/15/17 [History] Past Medical History HEENT History: Reports: Epistaxis, Impaired Vision Cardiovascular History: Reports: Afib, CAD, High Cholesterol, Hypertension, Stents, Other (See Below) Other Cardiovascular History: states leaking aortic valve Respiratory History: Reports: SOB Gastrointestinal History: Reports: GERD, Hiatal Hernia [employer] History: Reports: Musculoskeletal History: Reports: Fibromyalgia, Osteoarthritis, Other (See Below ) Other Musculoskeletal History: polymyalgia Endocrine/Metabolic History: Reports: Hypothyroidism Hematologic History: Reports: Anticoagulation Therapy, Blood Transfusion(s) - Infectious Disease History Infectious Disease History: Reports: Chicken Pox, Measles, Mumps - Past Surgical History HEENT Surgical History: Reports: Oral Surgery, Tonsillectomy Cardiovascular Surgical History: Reports: Coronary Artery Stent, Vascular Surgery GI Surgical History: Reports: Other (See Below) Other GI Surgeries/Procedures: 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 Neurological Surgical History: Reports: Lumbar Spine Social & Family History - Family History Psychiatric: Reports: Bipolar - Tobacco Use Smoking Status *Q: Unknown Ever Smoked Second Hand Smoke Exposure: No - Caffeine Use Caffeine Use: Reports: Coffee - Alcohol Use Days Per Week of Alcohol Use: 0 - Recreational Drug Use Recreational Drug Use: No ED ROS GENERAL - Review of Systems Review Of Systems: See Below Constitutional: Reports: No Symptoms HEENT: Reports: No Symptoms Respiratory: Reports: No Symptoms Cardiovascular: Reports: Chest Pain, Palpitations GI/Abdominal: Reports: No Symptoms : Reports: No Symptoms Musculoskeletal: Reports: No Symptoms Skin: Reports: No Symptoms ED EXAM, GENERAL - Physical Exam Exam: See Below Exam Limited By: No Limitations General Appearance: Alert, WD/WN, No Apparent Distress Head: Atraumatic, Normocephalic Neck: Normal Inspection, Supple, Non-Tender, Full Range of Motion Respiratory/Chest: No Respiratory Distress, Lungs Clear, Normal Breath Sounds, No Accessory Muscle Use Cardiovascular: Tachycardia, Irregularly Irregular GI/Abdominal: Soft, Non-Tender Course - Vital Signs Last Recorded V/S: Last Vital Signs Temp 98.6 F 10/15/17 20:13 Pulse 93 10/16/17 00:19 Resp 14 10/15/17 22:47 BP 171/122 H 10/16/17 00:19 Pulse Ox 93 L 10/15/17 22:47 - Orders/Labs/Meds Orders: Active Orders 24 hr Category Date Time Status Cardiac Monitoring [RC] .As Directed Care 10/15/17 21:01 Active EKG Documentation Completion [RC] ASDIRECTED Care 10/15/17 21:02 Active Peripheral IV Care [RC] . DIRECTED Care 10/15/17 21:02 Active Lactated Ringers [Ringers, Lactated] 1,000 ml Med 10/15/17 21:15 Active IV ASDIRECTED Sodium Chloride 0.9% [Saline Flush] Med 10/15/17 21:01 Active 10 ml FLUSH ASDIRECTED PRN ED Antiarrhythmia Med Reflex [OM.PC] Stat Oth 10/15/17 21:01 Ordered Peripheral IV Insertion Adult [OM.PC] Stat Oth 10/15/17 21:01 Ordered EKG 12 Lead [EK] Stat Ther 10/15/17 21:02 Ordered Medication Orders Lactated Ringer's (Ringers, Lactated) 1,000 mls @ 125 mls/hr IV ASDIRECTED MARCI Last Admin: 10/15/17 21:28 Dose: 125 mls/hr Sodium Chloride (Saline Flush) 10 ml FLUSH ASDIRECTED PRN PRN Reason: Keep Vein Open Last Admin: 10/15/17 21:30 Dose: 10 ml Labs: Laboratory Tests 10/15/17 10/15/17 10/15/17 Range/Units 21:20 21:20 21:20 WBC 8.4 (4.5-11.0) K/uL RBC 4.47 (3.30-5.50) M/uL Hgb 13.0 (12.0-15.0) g/dL Hct 40.7 (36.0-48.0) % MCV 91 (80-98) fL MCH 29 (27-31) pg MCHC 32 (32-36) % Plt Count 254 (150-400) K/uL Neut % (Auto) 63 (36-66) % Lymph % (Auto) 25 (24-44) % [place] % (Auto) 11 H (2-6) % Eos % (Auto) 1 L (2-4) % Baso % (Auto) 0 (0-1) % PT 17.4 H (9.5-12.0) sec INR 1.59 H (0.80-1.20) Sodium 148 (140-148) mmol/L Potassium 3.5 L (3.6-5.2) mmol/L Chloride 110 H (100-108) mmol/L Carbon Dioxide 30 (21-32) mmol/L Anion Gap 11.5 (5.0-14.0) mmol/L BUN 14 (7-18) mg/dL Creatinine 1.1 H (0.6-1.0) mg/dL Est Cr Clr Drug Dosing 38.82 mL/min Estimated GFR (MDRD) 48 L (>60) Glucose 85 (74-106) mg/dL Calcium 8.5 (8.5-10.1) mg/dL Total Bilirubin 0.4 (0.2-1.0) mg/dL AST 25 (15-37) U/L ALT 33 (12-78) U/L Alkaline Phosphatase 69 (46-116) U/L CK-MB (CK-2) 1.4 (0-3.6) mg/mL Troponin I < 0.017 (0.000-0.056) ng/mL Total Protein 6.4 (6.4-8.2) g/dL Albumin 3.1 L (3.4-5.0) g/dL Globulin 3.3 (2.3-3.5) g/dL Albumin/Globulin Ratio 0.9 L (1.2-2.2) TSH, Ultra Sensitive (0.358-3.740) uIU/mL 10/15/17 Range/Units 21:20 WBC (4.5-11.0) K/uL RBC (3.30-5.50) M/uL Hgb (12.0-15.0) g/dL Hct (36.0-48.0) % MCV (80-98) fL MCH (27-31) pg MCHC (32-36) % Plt Count (150-400) K/uL Neut % (Auto) (36-66) % Lymph % (Auto) (24-44) % [place] % (Auto) (2-6) % Eos % (Auto) (2-4) % Baso % (Auto) (0-1) % PT (9.5-12.0) sec INR (0.80-1.20) Sodium (140-148) mmol/L Potassium (3.6-5.2) mmol/L Chloride (100-108) mmol/L Carbon Dioxide (21-32) mmol/L Anion Gap (5.0-14.0) mmol/L BUN (7-18) mg/dL Creatinine (0.6-1.0) mg/dL Est Cr Clr Drug Dosing mL/min Estimated GFR (MDRD) (>60) Glucose (74-106) mg/dL Calcium (8.5-10.1) mg/dL Total Bilirubin (0.2-1.0) mg/dL AST (15-37) U/L ALT (12-78) U/L Alkaline Phosphatase (46-116) U/L CK-MB (CK-2) (0-3.6) mg/mL Troponin I (0.000-0.056) ng/mL Total Protein (6.4-8.2) g/dL Albumin (3.4-5.0) g/dL Globulin (2.3-3.5) g/dL Albumin/Globulin Ratio (1.2-2.2) TSH, Ultra Sensitive 2.914 (0.358-3.740) uIU/mL Meds: Medications Generic Name Dose Route Start Last Admin Trade Name Freq PRN Reason Stop Dose Admin Lactated Ringer's 1,000 mls @ 125 mls/hr 10/15/17 21:15 10/15/17 21:28 Ringers, Lactated IV 125 mls/hr ASDIRECTED MARCI Administration Sodium Chloride 10 ml 10/15/17 21:01 10/15/17 21:30 Saline Flush FLUSH 10 ml ASDIRECTED PRN Administration Keep Vein Open Discontinued Medications Generic Name Dose Route Start Last Admin Trade Name Freq PRN Reason Stop Dose Admin Amiodarone HCl 150 mg 10/15/17 21:04 10/15/17 21:27 Cordarone IVPUSH 10/15/17 21:05 150 mg ONETIME ONE Administration Protocol Aspirin 324 mg 10/15/17 21:06 10/15/17 21:27 Aspirin PO 10/15/17 21:07 324 mg ONETIME ONE Administration Metoprolol Succinate 100 mg 10/15/17 23:18 10/16/17 00:19 Toprol Xl PO 10/15/17 23:19 100 mg ONETIME ONE Administration Departure - Departure Time of Disposition: 01:24 Disposition: Home, Self-Care 01 Condition: Fair Clinical Impression: Paroxysmal atrial fibrillation Referrals: PCP,None [Primary Care Provider] - Forms: ED Department Discharge Additional Instructions: Continue to take your regular medications, please return to the emergency department with worsening of symptoms, please follow-up with your primary care provider in the next 3-5 days for reevaluation - My Orders Last 24 Hours: My Active Orders 10/15/17 21:01 Cardiac Monitoring [RC] .As Directed Sodium Chloride 0.9% [Saline Flush] 10 ml FLUSH ASDIRECTED PRN ED Antiarrhythmia Med Reflex [OM.PC] Stat Peripheral IV Insertion Adult [OM.PC] Stat 10/15/17 21:02 EKG Documentation Completion [RC] ASDIRECTED Peripheral IV Care [RC] . DIRECTED EKG 12 Lead [EK] Stat 10/15/17 21:15 Lactated Ringers [Ringers, Lactated] 1,000 ml IV ASDIRECTED - Assessment/Plan Last 24 Hours: My Active Orders 10/15/17 21:01 Cardiac Monitoring [RC] .As Directed Sodium Chloride 0.9% [Saline Flush] 10 ml FLUSH ASDIRECTED PRN ED Antiarrhythmia Med Reflex [OM.PC] Stat Peripheral IV Insertion Adult [OM.PC] Stat 10/15/17 21:02 EKG Documentation Completion [RC] ASDIRECTED Peripheral IV Care [RC] . DIRECTED EKG 12 Lead [EK] Stat 10/15/17 21:15 Lactated Ringers [Ringers, Lactated] 1,000 ml IV ASDIRECTED Plan: Assessment Acuity = acute Site and laterality = atrial fibrillation recurrent complicated patient with known history of coronary artery disease anticoagulated Etiology = unclear etiology Manifestations = angina with tachycardia resolved with rate control Location of injury = Home Lab values = CBC unremarkable, INR subtherapeutic at 1.6 potassium 3.5 consistent hypokalemia, troponin was negative, TSH normal at 2.9 Plan I did discuss with her options including cardioversion versus going home with rate control following the amiodarone bolus and metoprolol. Her last cardioversion was in May 2017 and was unsuccessful. She elected to go home with rate control will return to the emergency department worsening of symptoms or follow up with her primary care provider next 3-5 days for reevaluation This note was dictated using [employer] voice recognition software please call with any questions on syntax or elizabeth.
[2017-10-15] MEDS ORDERED: Lactated Ringers 1,000 ML IV SCH (21:15)
[2017-10-15] MEDS ORDERED: Metoprolol Succinate 50 MG Tab.ER PO ONE (23:18)
[2017-10-16 01:59] VITALS: BP 173/89
== END 2017-10-16 01:53 | disposition home or self-care (01) ==
LOC: JP.ED 20:05
DX: I48.0 Paroxysmal atrial fibrillation (principal); I10 Essential (primary) hypertension; E78.00 Pure hypercholesterolemia, unspecified; K21.9 Gastro-esophageal reflux disease without esophagitis; E03.9 Hypothyroidism, unspecified; Z79.82 Long term (current) use of aspirin; Z79.899 Other long term (current) drug therapy; Z88.8 Allergy status to other drugs, medicaments and biological substances; Z88.6 Allergy status to analgesic agent; Z88.1 Allergy status to other antibiotic agents; Z88.5 Allergy status to narcotic agent; Z91.09 Other allergy status, other than to drugs and biological substances; Z91.018 Allergy to other foods
CPT/HCPCS: 36415; 80053; 82553; 84443; 84484; 85025; 85610; 93005; 96361; 96374; 99284; A9270; J0282; J7050; J7120; 93010

== ENCOUNTER 2017-10-29 14:00 | Emergency (ER) | payer MEDICARE, BC ==
--- NOTE | 2017-10-29 15:23 | EDM.PDOC ---
ED HPI GENERAL MEDICAL PROBLEM - General Chief Complaint: General Stated Complaint: BAD HEADACHE, DISORIENTED, HIGH BP Time Seen by Provider: 10/29/17 15:09 Source of Information: Reports: Patient, Family, RN Notes Reviewed History Limitations: Reports: No Limitations - History of Present Illness INITIAL COMMENTS - FREE TEXT/NARRATIVE: 77-year-old female presents to the emergency department today sent over from clinic for further evaluation concern for cerebrovascular accident, this lady has had headache and disorientation with high blood pressure for the last 3 days she recently had upper respiratory illness was treated with antibiotics also had influenza B was ill for about 5 weeks had recovered from that. Now presents with this new illness she states feeling feverish but has no known fever at home no nausea or vomiting no shortness of breath or chest pain Headache Pain Score (Numeric/FACES): 10 - Related Data Allergies Allergy/AdvReac Type Severity Reaction Status Date / Time clindamycin Allergy Severe Joint Pain Verified 10/29/17 14:20 morphine Allergy Severe Anaphylactic Verified 10/29/17 14:20 Shock nystatin Allergy Intermediate Swelling Verified 10/29/17 14:20 acetaminophen [From NyQuil] Allergy Swelling Verified 10/29/17 14:20 aspirin Allergy Other Verified 10/29/17 14:20 casein Allergy Edema Verified 10/29/17 14:20 dextromethorphan HBr Allergy Swelling Verified 10/29/17 14:20 [From NyQuil] doxylamine succinate Allergy Swelling Verified 10/29/17 14:20 [From NyQuil] gluten Allergy Vomiting Verified 10/29/17 14:20 pseudoephedrine HCl Allergy Swelling Verified 10/29/17 14:20 [From NyQuil] codeine AdvReac Severe Vomiting Verified 10/29/17 14:20 Sulfa (Sulfonamide AdvReac Severe Vomiting Verified 10/29/17 14:20 Antibiotics) celecoxib [From Celebrex] AdvReac Intermediate Abdominal Verified 10/29/17 14:20 Pain erythromycin base AdvReac Intermediate Giddiness Verified 10/29/17 14:20 [Erythromycin Base] tramadol HCl [From Ultram] AdvReac Intermediate Vomiting Verified 10/29/17 14:20 furosemide AdvReac Leg Cramps Verified 10/29/17 14:20 rofecoxib [From Vioxx] AdvReac Nausea and Verified 10/29/17 14:20 Vomiting *aloe plant sterols Allergy Unknown Cannot Uncoded 10/29/17 14:20 Remember *elderberry Allergy Unknown Cannot Uncoded 10/29/17 14:20 Remember *grape seed extract Allergy Unknown Swelling Uncoded 10/29/17 14:20 *olive leaf extract Allergy Unknown Cannot Uncoded 10/29/17 14:20 Remember Home Meds: Home Meds predniSONE [Prednisone] 1 mg PO DAILY 06/25/13 [History] 5-Hydroxytryptophan [5-Htp] 100 mg PO DAILY 05/28/14 [History] Calcium Carbonate [Calcium] 500 mg PO BID 05/28/14 [History] Nitroglycerin [Nitrostat] 0.4 mg SL ASDIRECTED PRN 05/28/14 [History] Ubidecarenone [Coenzyme Q10] 100 mg PO BID 05/28/14 [History] *[place] Oil 1 cap PO BID 08/30/17 [History] Aspirin [Halfprin] 1 tab PO DAILY 08/30/17 [History] L.acidoph,Paracasei, B.lactis [Probiotic] 1 tab PO BID 08/30/17 [History] Magnesium Citrate 400 mg PO DAILY 08/30/17 [History] Metoprolol Succinate [Toprol XL 100mg] 1 tab PO DAILY 08/30/17 [History] Multivitamin with Minerals [Multiple Vitamin] 1 tab PO DAILY 08/30/17 [History] Warfarin [Coumadin] 5 tab PO DAILY 08/30/17 [History] atorvaSTATin [Lipitor] 1 tab PO DAILY 08/30/17 [History] Losartan [Cozaar] 50 mg PO DAILY 10/15/17 [History] Bumetanide [Bumex] 0.5 mg PO DAILY 10/29/17 [History] Hydrochlorothiazide 1 cap PO DAILY 10/29/17 [History] Potassium Chloride [Klor-Con M20] 1 tab PO DAILY 10/29/17 [History] Past Medical History HEENT History: Reports: Epistaxis, Impaired Vision Cardiovascular History: Reports: Afib, CAD, High Cholesterol, Hypertension, Stents, Other (See Below) Other Cardiovascular History: states leaking aortic valve Respiratory History: Reports: SOB Gastrointestinal History: Reports: GERD, Hiatal Hernia [employer]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: Musculoskeletal History: Reports: Fracture, Fibromyalgia, Osteoarthritis, Other (See Below) Other Musculoskeletal History: polymyalgia Endocrine/Metabolic History: Reports: Hypothyroidism Hematologic History: Reports: Anticoagulation Therapy, Blood Transfusion(s) Dermatologic History: Reports: Cellulitis - Infectious Disease History Infectious Disease History: Reports: Chicken Pox, Influenza - Past Surgical History HEENT Surgical History: Reports: Oral Surgery, Tonsillectomy Cardiovascular Surgical History: Reports: Coronary Artery Stent, Vascular Surgery GI Surgical History: Reports: Other (See Below) Other GI Surgeries/Procedures: 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 Neurological Surgical History: Reports: Lumbar Spine Social & Family History - Family History Psychiatric: Reports: Bipolar - Tobacco Use Smoking Status *Q: Never Smoker - Caffeine Use Caffeine Use: Reports: None - Recreational Drug Use Recreational Drug Use: No ED ROS GENERAL - Review of Systems Review Of Systems: See Below Constitutional: Reports: Fever (Feverish), Weakness HEENT: Reports: No Symptoms Respiratory: Reports: No Symptoms Cardiovascular: Reports: Blood Pressure Problem GI/Abdominal: Reports: No Symptoms : Reports: No Symptoms Musculoskeletal: Reports: No Symptoms Skin: Reports: No Symptoms Neurological: Reports: Headache ED EXAM, GENERAL - Physical Exam Exam: See Below Free Text/Narrative:: General: Female, ill-appearing, alert and oriented x3 HEENT: head is atraumatic normocephalic, eyes pupils equal round reactive to light, sclera clear no conjunctivitis appreciated. Ears tympanic membranes clear and benjamin landmarks and light reflex are present bilaterally canals are clear. Nose no septal deviation, nares are clear, no blood present. Mouth mucosa is moist and pink no erythema or exudate noted in soft palate, tongue is midline uvula is midline , dentition is intact. Neck: Supple no thyromegaly no tracheal deviation. Positive for nuchal rigidity cannot put her chin on her chest without eliciting pain Nodes: Cervical nodes subclavicular nodes nontender no palpable lymphadenopathy noted. Lungs: clear to auscultation bilaterally with symmetrical respirations, no adventitious noise appreciated. CV: Regular rate and rhythm S1 and S2 appreciated no murmurs rubs or gallops noted. Abdomen: Soft, nontender, no palpable masses or organomegaly appreciated, no distention no guarding bowel sounds are present, . Neuro: Cranial nerves II through XII grossly intact Skin: Warm and dry, intact Extremities: No lower extremity edema appreciated, . Course - Vital Signs Last Recorded V/S: Last Vital Signs Temp 101.7 F H 05/14/18 14:23 Pulse 79 10/29/17 16:20 Resp 8 L 10/29/17 16:20 BP 208/73 H 10/29/17 16:20 Pulse Ox 95 10/29/17 16:20 - Orders/Labs/Meds Orders: Active Orders 24 hr Category Date Time Status Mason Catheter Insertion [Insert Urinary Catheter] [OM. Care 10/29/17 16:30 Ordered PC] Q24H Urinary Catheter Assessment [RC] ASDIRECTED Care 10/29/17 16:21 Active Vital Signs [RC] Q1H Care 10/29/17 15:19 Active Chest 1V Frontal [CR] Urgent Exams 10/29/17 15:23 Taken Head wo Cont [CT] Stat Exams 10/29/17 15:20 Taken CULTURE BLOOD [BC] Urgent Lab 10/29/17 15:50 Received CULTURE BLOOD [BC] Urgent Lab 10/29/17 16:00 Received LACTIC ACID [CHEM] Stat Lab 10/29/17 15:50 Received UA W/MICROSCOPIC [URIN] Urgent Lab 10/29/17 16:24 Ordered Lactated Ringers [Ringers, Lactated] 1,000 ml Med 10/29/17 15:30 Active IV ASDIRECTED Blood Culture x2 Reflex Set [OM.PC] Urgent Oth 10/29/17 15:19 Ordered Medication Orders Lactated Ringer's (Ringers, Lactated) 1,000 mls @ 999 mls/hr IV ASDIRECTED MARCI Last Admin: 10/29/17 16:15 Dose: 999 mls/hr Labs: Laboratory Tests 10/29/17 10/29/17 10/29/17 Range/Units 15:50 15:50 15:50 WBC 10.5 (4.5-11.0) K/uL RBC 4.79 (3.30-5.50) M/uL Hgb 14.0 (12.0-15.0) g/dL Hct 42.8 (36.0-48.0) % MCV 89 (80-98) fL MCH 29 (27-31) pg MCHC 33 (32-36) % Plt Count 298 (150-400) K/uL Neut % (Auto) 79 H (36-66) % Lymph % (Auto) 14 L (24-44) % [place] % (Auto) 7 H (2-6) % Eos % (Auto) 0 L (2-4) % Baso % (Auto) 0 (0-1) % PT 14.1 H (9.5-12.0) sec INR 1.30 H (0.80-1.20) Sodium 136 L (140-148) mmol/L Potassium 3.7 (3.6-5.2) mmol/L Chloride 100 (100-108) mmol/L Carbon Dioxide 24 (21-32) mmol/L Anion Gap 15.7 H (5.0-14.0) mmol/L BUN 14 (7-18) mg/dL Creatinine 0.8 (0.6-1.0) mg/dL Est Cr Clr Drug Dosing 53.38 mL/min Estimated GFR (MDRD) > 60 (>60) Glucose 99 (74-106) mg/dL Calcium 8.6 (8.5-10.1) mg/dL Total Bilirubin 0.7 D (0.2-1.0) mg/dL AST 28 (15-37) U/L ALT 31 (12-78) U/L Alkaline Phosphatase 70 (46-116) U/L C-Reactive Protein 0.52 H (0.0-0.3) mg/dL Total Protein 7.2 (6.4-8.2) g/dL Albumin 3.7 (3.4-5.0) g/dL Globulin 3.5 (2.3-3.5) g/dL Albumin/Globulin Ratio 1.1 L (1.2-2.2) Meds: Medications Generic Name Dose Route Start Last Admin Trade Name Frejessika PRN Reason Stop Dose Admin Lactated Ringer's 1,000 mls @ 999 mls/hr 10/29/17 15:30 10/29/17 16:15 Ringers, Lactated IV 999 mls/hr ASDIRECTED MARCI Administration Discontinued Medications Generic Name Dose Route Start Last Admin Trade Name Freq PRN Reason Stop Dose Admin Fentanyl 50 mcg 10/29/17 16:15 10/29/17 16:22 Sublimaze IVPUSH 10/29/17 16:16 50 mcg ONETIME ONE Administration Labetalol HCl 10 mg 10/29/17 16:15 10/29/17 16:23 Normodyne IVPUSH 10/29/17 16:16 10 mg NOW ONE Administration Protocol Departure - Departure Time of Disposition: 16:38 Disposition: DC/Tfer to Acute Hospital 02 Condition: Poor Clinical Impression: Intraparenchymal hematoma of brain Qualifiers: Encounter type: initial encounter Laterality: left - Discharge Information Referrals: Seth Veliz MD [Primary Care Provider] - Forms: ED Department Discharge Critical Care Note - Critical Care Note Total Time (mins): 30 - My Orders Last 24 Hours: My Active Orders 10/29/17 15:19 Vital Signs [RC] Q1H Blood Culture x2 Reflex Set [OM.PC] Urgent 10/29/17 15:20 Head wo Cont [CT] Stat 10/29/17 15:23 Chest 1V Frontal [CR] Urgent 10/29/17 15:30 Lactated Ringers [Ringers, Lactated] 1,000 ml IV ASDIRECTED 10/29/17 15:50 CULTURE BLOOD [BC] Urgent LACTIC ACID [CHEM] Stat 10/29/17 16:00 CULTURE BLOOD [BC] Urgent 10/29/17 16:21 Urinary Catheter Assessment [RC] ASDIRECTED 10/29/17 16:24 UA W/MICROSCOPIC [URIN] Urgent 10/29/17 16:30 Mason Catheter Insertion [Insert Urinary Catheter] [OM.PC] Q24H - Assessment/Plan Last 24 Hours: My Active Orders 10/29/17 15:19 Vital Signs [RC] Q1H Blood Culture x2 Reflex Set [OM.PC] Urgent 10/29/17 15:20 Head wo Cont [CT] Stat 10/29/17 15:23 Chest 1V Frontal [CR] Urgent 10/29/17 15:30 Lactated Ringers [Ringers, Lactated] 1,000 ml IV ASDIRECTED 10/29/17 15:50 CULTURE BLOOD [BC] Urgent LACTIC ACID [CHEM] Stat 10/29/17 16:00 CULTURE BLOOD [BC] Urgent 10/29/17 16:21 Urinary Catheter Assessment [RC] ASDIRECTED 10/29/17 16:24 UA W/MICROSCOPIC [URIN] Urgent 10/29/17 16:30 Mason Catheter Insertion [Insert Urinary Catheter] [OM.PC] Q24H Plan: Assessment Acuity = acute Site and laterality = interparenchymal hematoma complicated in a patient with known history of hypertension, coronary artery disease and atrial fibrillation on anticoagulation therapy Etiology = unclear etiology Manifestations = headache and fever Location of injury = Home Lab values = CBC, CMP unremarkable INR subtherapeutic at 1.3 CT scan described the intracranial lesion above Plan Called and discussed the case with Dr. Hodge neurosurgery [facility] kindly accepted the patient in transport will be transported via EMS ground blood pressure was above the 140 threshold therefore was given 20 mg labetalol prior to departure with ambulance crew instructions to maintain blood pressure at the 140 level. No reversal of the INR was initiated as she was 1.3. Was provided 50 g fentanyl for pain control This note was dictated using [employer] voice recognition software please call with any questions on syntax or grammar.
[2017-10-29] MEDS ORDERED: Lactated Ringers 1,000 ML IV SCH (15:30)
[2017-10-29] MEDS ORDERED: Labetalol 20 MG/4 ML Syringe IVPUSH ONE (16:15)
[2017-10-29] MEDS ORDERED: fentaNYL 100 MCG/2 ML SDV IVPUSH ONE (16:15)
[2017-10-29 16:25] VITALS: BP 208/73
--- NOTE | 2017-10-30 09:07 | CR ---
Chest 1V Frontal FINDINGS: The heart and vascular structures are normal in appearance. No infiltrates or effusions are demonstrated. The skeletal structures are unremarkable. IMPRESSION: Negative exam.
== END 2017-10-29 17:01 ==
LOC: JP.ED 14:00
DX: I61.8 Other nontraumatic intracerebral hemorrhage (principal); I48.91 Unspecified atrial fibrillation; E78.00 Pure hypercholesterolemia, unspecified; I10 Essential (primary) hypertension; I25.10 Atherosclerotic heart disease of native coronary artery without angina pectoris; E03.9 Hypothyroidism, unspecified; Z79.01 Long term (current) use of anticoagulants; Z88.1 Allergy status to other antibiotic agents; Z88.5 Allergy status to narcotic agent; Z88.6 Allergy status to analgesic agent; Z88.8 Allergy status to other drugs, medicaments and biological substances; Z79.899 Other long term (current) drug therapy
CPT/HCPCS: 36415; 51702; 70450; 71045; 80053; 81001; 83605; 85025; 85610; 86140; 87040; 96361; 96374; 96375; 99285; J3010; J7120

== ENCOUNTER 2017-12-17 12:23 | Emergency (ER) | payer MEDICARE, BC ==
--- NOTE | 2017-12-17 13:36 | EDM.PDOC ---
ED HPI GENERAL MEDICAL PROBLEM - General Chief Complaint: Cardiovascular Problem Stated Complaint: AFIB Time Seen by Provider: 12/17/17 13:25 Source of Information: Reports: Patient, Old Records, RN History Limitations: Reports: No Limitations - History of Present Illness INITIAL COMMENTS - FREE TEXT/NARRATIVE: 77 yo female with a pHx of paroxysmal afib and a recent CVA presents after what would be her 3rd episode of paroxysmal afib with tachycardia. Awoke with rapid irregular rhythm this moring and noted slowing as she got to the hospital today. Now is back to normal in the ER. Came via private vehicle. No CP, SOB, or diaphoresis. Has been told she has to wait 6 mos after her CVA before she can have an ablation. Is due for her next INR in 3 days. 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 Onset: Today Onset Date: 12/17/17 Onset Time: 07:30 Duration: Hour(s): (4.5), Resolved Prior to Arrival Location: Reports: Chest Quality: Reports: Other (no pain) Severity: Moderate Improves with: Reports: Other (? 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) (none) Middle Chest Pain Score (Numeric/FACES): 3 - Related Data Allergies Allergy/AdvReac Type Severity Reaction Status Date / Time clindamycin Allergy Severe Joint Pain Verified 12/17/17 13:05 morphine Allergy Severe Anaphylactic Verified 12/17/17 13:05 Shock nystatin Allergy Intermediate Swelling Verified 12/17/17 13:05 acetaminophen [From NyQuil] Allergy Swelling Verified 12/17/17 13:05 aspirin Allergy Other Verified 12/17/17 13:05 casein Allergy Edema Verified 12/17/17 13:05 dextromethorphan HBr Allergy Swelling Verified 12/17/17 13:05 [From NyQuil] doxylamine succinate Allergy Swelling Verified 12/17/17 13:05 [From NyQuil] gluten Allergy Vomiting Verified 12/17/17 13:05 pseudoephedrine HCl Allergy Swelling Verified 12/17/17 13:05 [From NyQuil] codeine AdvReac Severe Vomiting Verified 12/17/17 13:05 Sulfa (Sulfonamide AdvReac Severe Vomiting Verified 12/17/17 13:05 Antibiotics) celecoxib [From Celebrex] AdvReac Intermediate Abdominal Verified 12/17/17 13:05 Pain erythromycin base AdvReac Intermediate Giddiness Verified 12/17/17 13:05 [Erythromycin Base] tramadol HCl [From Ultram] AdvReac Intermediate Vomiting Verified 12/17/17 13:05 furosemide AdvReac Leg Cramps Verified 12/17/17 13:05 rofecoxib [From Vioxx] AdvReac Nausea and Verified 12/17/17 13:05 Vomiting *aloe plant sterols Allergy Unknown Cannot Uncoded 12/17/17 13:05 Remember *elderberry Allergy Unknown Cannot Uncoded 12/17/17 13:05 Remember *grape seed extract Allergy Unknown Swelling Uncoded 12/17/17 13:05 *olive leaf extract Allergy Unknown Cannot Uncoded 12/17/17 13:05 Remember Home Meds: Home Meds predniSONE [Prednisone] 1 mg PO DAILY 06/25/13 [History] Calcium Carbonate [Calcium] 500 mg PO BID 05/28/14 [History] Nitroglycerin [Nitrostat] 0.4 mg SL ASDIRECTED PRN 05/28/14 [History] Ubidecarenone [Coenzyme Q10] 100 mg PO BID 05/28/14 [History] Aspirin [Halfprin] 81 mg PO DAILY 08/30/17 [History] L.acidoph,Paracasei, B.lactis [Probiotic] 1 tab PO BID 08/30/17 [History] Magnesium Citrate 400 mg PO DAILY 08/30/17 [History] Metoprolol Succinate [Toprol XL 100mg] 100 mg PO DAILY 08/30/17 [History] Multivitamin with Minerals [Multiple Vitamin] 1 tab PO DAILY 08/30/17 [History] Warfarin [Coumadin] 2.5 mg PO DAILY 08/30/17 [History] atorvaSTATin [Lipitor] 40 mg PO DAILY 08/30/17 [History] Losartan [Cozaar] 50 mg PO DAILY 10/15/17 [History] Bumetanide [Bumex] 0.5 mg PO DAILY 10/29/17 [History] Hydrochlorothiazide 12.5 mg PO DAILY 10/29/17 [History] Potassium Chloride [Klor-Con M20] 20 meq PO DAILY 10/29/17 [History] Melatonin 6 mg PO BEDTIME 12/17/17 [History] Past Medical History HEENT History: Reports: Epistaxis, Impaired Vision Cardiovascular History: Reports: Afib, CAD, High Cholesterol, Hypertension, Stents, Other (See Below) Other Cardiovascular History: states leaking aortic valve Respiratory History: Reports: SOB Gastrointestinal History: Reports: GERD, Hiatal Hernia 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: Musculoskeletal History: Reports: Fracture, Fibromyalgia, Osteoarthritis, Other (See Below) Other Musculoskeletal History: polymyalgia Neurological History: Reports: CVA Endocrine/Metabolic History: Reports: Hypothyroidism Hematologic History: Reports: Anticoagulation Therapy, Blood Transfusion(s) Dermatologic History: Reports: Cellulitis - Infectious Disease History Infectious Disease History: Reports: Chicken Pox, Influenza - Past Surgical History HEENT Surgical History: Reports: Oral Surgery, Tonsillectomy Cardiovascular Surgical History: Reports: Coronary Artery Stent, Vascular Surgery GI Surgical History: Reports: Other (See Below) Other GI Surgeries/Procedures: 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 Neurological Surgical History: Reports: Lumbar Spine Social & Family History - Family History Psychiatric: Reports: Bipolar - Tobacco Use Smoking Status *Q: Never Smoker - Caffeine Use Caffeine Use: Reports: None - Recreational Drug Use Recreational Drug Use: No ED ROS GENERAL - Review of Systems Review Of Systems: See Below Constitutional: Reports: No Symptoms HEENT: Reports: No Symptoms Respiratory: Reports: No Symptoms Cardiovascular: Reports: Palpitations Endocrine: Reports: No Symptoms GI/Abdominal: Reports: No Symptoms : Reports: No Symptoms Musculoskeletal: Reports: No Symptoms Skin: Reports: No Symptoms Neurological: Reports: No Symptoms ED EXAM, GENERAL - Physical Exam Exam: See Below Exam Limited By: No Limitations General Appearance: Alert, WD/WN, No Apparent Distress Eye Exam: Bilateral Eye: Normal Inspection Ears: Normal External Exam, Normal Canal, Hearing Grossly Normal Ear Exam: Bilateral Ear: Auricle Normal, Canal Normal Nose: Normal Inspection, Normal Mucosa, No Blood Throat/Mouth: Normal Inspection, Normal Lips, Normal Oropharynx, Normal Voice, No Airway Compromise Head: Atraumatic, Normocephalic Neck: Normal Inspection Respiratory/Chest: No Respiratory Distress, Lungs Clear, Normal Breath Sounds, No Accessory Muscle Use Cardiovascular: Regular Rate, Rhythm, No Edema GI/Abdominal: Normal Bowel Sounds, Soft, Non-Tender, No Distention Back Exam: Normal Inspection Extremities: Normal Inspection, Normal Range of Motion, Non-Tender, No Pedal Edema Neurological: Alert, Oriented, CN II-XII Intact, Normal Cognition, No Motor/ Sensory Deficits Psychiatric: Normal Affect, Normal Mood Skin Exam: Warm, Dry, Intact, Normal Color, No Rash Course - Vital Signs Last Recorded V/S: Last Vital Signs Temp 37.1 C 12/17/17 13:00 Pulse 61 12/17/17 14:16 Resp 18 12/17/17 14:16 BP 120/79 12/17/17 14:16 Pulse Ox 95 12/17/17 14:16 - Orders/Labs/Meds Orders: Active Orders 24 hr Category Date Time Status Cardiac Monitoring [RC] .As Directed Care 12/17/17 13:25 Active Labs: Laboratory Tests 12/17/17 12/17/17 Range/Units 13:37 13:37 PT 15.1 H (9.5-12.0) sec INR 1.39 H (0.80-1.20) Sodium 140 (140-148) mmol/L Potassium 3.7 (3.6-5.2) mmol/L Chloride 102 (100-108) mmol/L Carbon Dioxide 31 (21-32) mmol/L Anion Gap 7.0 (5.0-14.0) mmol/L BUN 14 (7-18) mg/dL Creatinine 0.8 (0.6-1.0) mg/dL Est Cr Clr Drug Dosing 53.38 mL/min Estimated GFR (MDRD) > 60 (>60) Glucose 104 (74-106) mg/dL Calcium 9.0 (8.5-10.1) mg/dL Troponin I < 0.017 (0.000-0.056) ng/mL TSH, Ultra Sensitive 1.240 (0.358-3.740) uIU/mL Meds: Medications Discontinued Medications Generic Name Dose Route Start Last Admin Trade Name Freq PRN Reason Stop Dose Admin Warfarin Sodium 5 mg 12/17/17 14:43 Coumadin PO 12/17/17 14:44 ONETIME ONE Departure - Departure Time of Disposition: 15:00 Disposition: Home, Self-Care 01 Condition: Fair Clinical Impression: Paroxysmal atrial fibrillation, Subtherapeutic international normalized ratio ( INR) Referrals: PCP,None [Primary Care Provider] - Forms: ED Department Discharge - My Orders Last 24 Hours: My Active Orders 12/17/17 13:25 Cardiac Monitoring [RC] .As Directed - Assessment/Plan Last 24 Hours: My Active Orders 12/17/17 13:25 Cardiac Monitoring [RC] .As Directed
[2017-12-17 14:18] VITALS: BP 120/79
[2017-12-17] MEDS ORDERED: Warfarin 5 MG Tab PO ONE (14:43)
[2017-12-17] MEDS ORDERED: Sotalol 80 MG Tab PO SCH (15:00)
== END 2017-12-17 15:06 | disposition home or self-care (01) ==
LOC: JP.ED 12:23
DX: I48.0 Paroxysmal atrial fibrillation (principal); R79.1 Abnormal coagulation profile; Z79.01 Long term (current) use of anticoagulants; Z79.82 Long term (current) use of aspirin; Z79.899 Other long term (current) drug therapy; Z91.018 Allergy to other foods; Z88.8 Allergy status to other drugs, medicaments and biological substances; Z88.1 Allergy status to other antibiotic agents; Z88.2 Allergy status to sulfonamides; Z88.5 Allergy status to narcotic agent; Z88.6 Allergy status to analgesic agent
CPT/HCPCS: 36415; 80048; 84443; 84484; 85610; 99284; A9270

== ENCOUNTER 2018-08-25 21:54 | Emergency (ER) | payer MEDICARE, BC ==
[2018-08-25 23:34] VITALS: BP 144/78
--- NOTE | 2018-08-25 23:58 | EDM.PDOC ---
ED HPI GENERAL MEDICAL PROBLEM - General Chief Complaint: Cardiovascular Problem Stated Complaint: HIGH BP Time Seen by Provider: 08/25/18 23:30 Source of Information: Reports: Patient History Limitations: Reports: No Limitations - History of Present Illness INITIAL COMMENTS - FREE TEXT/NARRATIVE: 78 year-old with history of hypertension, ICH, CAD, atrial fibrillation status post watchmen no longer anticoagulation presents with concerns of asymptomatic hypertension. She reports that she fell asleep in her chair last night and forgot to take her medications. She woke this morning and noticed throughout the day that she felt like her coordination was slightly off when she was trying to walk and she felt more fatigued. This is since resolved. She noted no weakness, speech changes, dizziness, difficulty with gait or motor movements. She called a family member today and described the symptoms at which time the family member instructed her to check her take her blood pressure and it was elevated to an SBP 180. She denies any concerns. She had no fevers or chills. No dysuria or frequency. No pain. No headache. No vision changes. No chest pain. neck pain Pain Score (Numeric/FACES): 4 - Related Data Allergies Allergy/AdvReac Type Severity Reaction Status Date / Time clindamycin Allergy Severe Joint Pain Verified 08/25/18 22:34 morphine Allergy Severe Anaphylactic Verified 08/25/18 22:34 Shock nystatin Allergy Intermediate Swelling Verified 08/25/18 22:34 acetaminophen [From NyQuil] Allergy Swelling Verified 08/25/18 22:34 aspirin Allergy Other Verified 08/25/18 22:34 casein Allergy Edema Verified 08/25/18 22:34 dextromethorphan HBr Allergy Swelling Verified 08/25/18 22:34 [From NyQuil] doxylamine succinate Allergy Swelling Verified 08/25/18 22:34 [From NyQuil] gluten Allergy Vomiting Verified 08/25/18 22:34 pseudoephedrine HCl Allergy Swelling Verified 08/25/18 22:34 [From NyQuil] codeine AdvReac Severe Vomiting Verified 08/25/18 22:34 Sulfa (Sulfonamide AdvReac Severe Vomiting Verified 08/25/18 22:34 Antibiotics) celecoxib [From Celebrex] AdvReac Intermediate Abdominal Verified 08/25/18 22:34 Pain erythromycin base AdvReac Intermediate Giddiness Verified 08/25/18 22:34 [Erythromycin Base] tramadol HCl [From Ultram] AdvReac Intermediate Vomiting Verified 08/25/18 22:34 furosemide AdvReac Leg Cramps Verified 08/25/18 22:34 rofecoxib [From Vioxx] AdvReac Nausea and Verified 08/25/18 22:34 Vomiting *aloe plant sterols Allergy Unknown Cannot Uncoded 08/25/18 22:34 Remember *elderberry Allergy Unknown Cannot Uncoded 08/25/18 22:34 Remember *grape seed extract Allergy Unknown Swelling Uncoded 08/25/18 22:34 *olive leaf extract Allergy Unknown Cannot Uncoded 08/25/18 22:34 Remember Home Meds: Home Meds Calcium Carbonate [Calcium] 500 mg PO BID 05/28/14 [History] Nitroglycerin [Nitrostat] 0.4 mg SL ASDIRECTED PRN 05/28/14 [History] Ubidecarenone [Coenzyme Q10] 100 mg PO BID 05/28/14 [History] Aspirin [Halfprin] 81 mg PO DAILY 08/30/17 [History] L.acidoph,Paracasei, B.lactis [Probiotic] 1 tab PO BID 08/30/17 [History] Magnesium Citrate 400 mg PO BEDTIME 08/30/17 [History] Metoprolol Succinate [Toprol XL 100mg] 100 mg PO DAILY 08/30/17 [History] atorvaSTATin [Lipitor] 40 mg PO BEDTIME 08/30/17 [History] Losartan [Cozaar] 50 mg PO DAILY 10/15/17 [History] Bumetanide [Bumex] 0.5 mg PO DAILY 10/29/17 [History] Potassium Chloride [Klor-Con M20] 20 meq PO DAILY 10/29/17 [History] hydroCHLOROthiazide [Hydrochlorothiazide] 12.5 mg PO DAILY 10/29/17 [History] Sotalol [Betapace] 80 mg PO BID #60 tab 12/17/17 [Rx] predniSONE [Prednisone] 10 mg PO DAILY 08/25/18 [History] Past Medical History HEENT History: Reports: Epistaxis, Impaired Vision Cardiovascular History: Reports: Afib, CAD, High Cholesterol, Hypertension, Stents, Other (See Below) Other Cardiovascular History: states leaking aortic valve Respiratory History: Reports: SOB Gastrointestinal History: Reports: GERD, 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 Hernia 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: Musculoskeletal History: Reports: Fracture, Fibromyalgia, Osteoarthritis, Other (See Below) Other Musculoskeletal History: polymyalgia Neurological History: Reports: CVA Endocrine/Metabolic History: Reports: Hypothyroidism Hematologic History: Reports: Anticoagulation Therapy, Blood Transfusion(s) Dermatologic History: Reports: Cellulitis - Infectious Disease History Infectious Disease History: Reports: Chicken Pox, Measles, Mumps - Past Surgical History HEENT Surgical History: Reports: Oral Surgery, Tonsillectomy Cardiovascular Surgical History: Reports: Coronary Artery Stent, Vascular Surgery, Other (See Below) Other Cardiovascular Surgeries/Procedures: Watchman procedure GI Surgical History: Reports: Other (See Below) Other GI Surgeries/Procedures: 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 Neurological Surgical History: Reports: Lumbar Spine Social & Family History - Family History Psychiatric: Reports: Bipolar - Tobacco Use Smoking Status *Q: Never Smoker - Caffeine Use Caffeine Use: Reports: None - Recreational Drug Use Recreational Drug Use: No ED ROS GENERAL - Review of Systems Review Of Systems: See Below Constitutional: Reports: Fatigue HEENT: Reports: No Symptoms Respiratory: Reports: No Symptoms Cardiovascular: Reports: No Symptoms. Denies: Chest Pain Endocrine: Reports: No Symptoms GI/Abdominal: Reports: No Symptoms. Denies: Abdominal Pain : Denies: Dysuria, Frequency Musculoskeletal: Reports: No Symptoms Skin: Reports: No Symptoms Neurological: Reports: Other (coordination difficulty) Psychiatric: Reports: No Symptoms Hematologic/Lymphatic: Reports: No Symptoms Immunologic: Reports: No Symptoms ED EXAM, GENERAL - Physical Exam Exam: See Below Exam Limited By: No Limitations General Appearance: Alert, No Apparent Distress Eye Exam: Bilateral Eye: EOMI Ears: Normal External Exam Nose: Normal Inspection Throat/Mouth: Normal Inspection Head: Atraumatic, Normocephalic Neck: Normal Inspection Respiratory/Chest: Lungs Clear Cardiovascular: Regular Rate, Rhythm GI/Abdominal: Soft, Non-Tender Back Exam: Normal Inspection Extremities: Normal Inspection Neurological: Alert, Oriented, CN II-XII Intact, Other (Finger-nose testing and coordination grossly intact, stable gait, extremity strength 5 over 5 and symmetric, speech is fluid) Psychiatric: Normal Affect, Normal Mood Skin Exam: Warm, Dry Course - Vital Signs Last Recorded V/S: Last Vital Signs Temp 36.3 C 08/25/18 23:32 Pulse 51 L 08/25/18 23:32 Resp 16 08/25/18 23:32 BP 144/78 H 08/25/18 23:32 Pulse Ox 96 08/25/18 23:32 - Re-Assessments/Exams Free Text/Narrative Re-Assessment/Exam: 78-year-old with multiple comorbidities as above presents primarily with concerns of asymptomatic hypertension after missing a dose of medication. This was an isolated reading on her home machine. Blood pressures have been appropriate in the emergency department. We discussed her symptoms of fatigue and feeling uncoordinated today. No infectious symptoms. No new medications to blame. Her exam is benign and she is neurologically intact. We discussed a basic workup with screening labs and UA however patient is feeling at her baseline now and wishes to forego this testing. Her preference would be to follow up with her PCP later this week which she is planning to do. Discharged 08/26/18 00:05 Departure - Departure Time of Disposition: 23:57 Disposition: Home, Self-Care 01 Clinical Impression: Essential hypertension Instructions: Hypertension, [id number] Referrals: Seth Veliz MD [Primary Care Provider] - Forms: ED Department Discharge Additional Instructions: Please follow up with Dr eVliz as discussed Return to the ER for worsening symptoms
== END 2018-08-26 00:04 | disposition home or self-care (01) ==
LOC: JP.ED 21:54
DX: I10 Essential (primary) hypertension (principal); I25.10 Atherosclerotic heart disease of native coronary artery without angina pectoris; I48.91 Unspecified atrial fibrillation; E03.9 Hypothyroidism, unspecified; Z86.73 Personal history of transient ischemic attack (TIA), and cerebral infarction without residual deficits; Z98.890 Other specified postprocedural states; Z79.899 Other long term (current) drug therapy; Z88.8 Allergy status to other drugs, medicaments and biological substances; Z79.82 Long term (current) use of aspirin; Z88.1 Allergy status to other antibiotic agents; Z91.018 Allergy to other foods; Z88.2 Allergy status to sulfonamides; Z88.5 Allergy status to narcotic agent
CPT/HCPCS: 99282; 99283

== ENCOUNTER 2018-09-07 13:13 | Emergency (ER) | payer MEDICARE, BC ==
[2018-09-07 14:29] VITALS: BP 133/73
--- NOTE | 2018-09-07 15:02 | EDM.PDOC ---
ED HPI GENERAL MEDICAL PROBLEM - General Chief Complaint: Cardiovascular Problem Stated Complaint: ATRIAL FIBRILLATION Time Seen by Provider: 09/07/18 14:45 - History of Present Illness INITIAL COMMENTS - FREE TEXT/NARRATIVE: 78 yo hx of afib presents with concerns of recurrent a-fib Was at home, noticed high pulse, measured and was nearly 120 No other symptoms, no chest pain or dyspnea Comes in because last time had a-fib she attributed to her stroke, has watchman device - Related Data Allergies Allergy/AdvReac Type Severity Reaction Status Date / Time clindamycin Allergy Severe Joint Pain Verified 09/07/18 13:31 morphine Allergy Severe Anaphylactic Verified 09/07/18 13:31 Shock nystatin Allergy Intermediate Swelling Verified 09/07/18 13:31 acetaminophen [From NyQuil] Allergy Swelling Verified 09/07/18 13:31 aspirin Allergy Other Verified 09/07/18 13:31 casein Allergy Edema Verified 09/07/18 13:31 dextromethorphan HBr Allergy Swelling Verified 09/07/18 13:31 [From NyQuil] doxylamine succinate Allergy Swelling Verified 09/07/18 13:31 [From NyQuil] gluten Allergy Vomiting Verified 09/07/18 13:31 pseudoephedrine HCl Allergy Swelling Verified 09/07/18 13:31 [From NyQuil] codeine AdvReac Severe Vomiting Verified 09/07/18 13:31 Sulfa (Sulfonamide AdvReac Severe Vomiting Verified 09/07/18 13:31 Antibiotics) celecoxib [From Celebrex] AdvReac Intermediate Abdominal Verified 09/07/18 13:31 Pain erythromycin base AdvReac Intermediate Giddiness Verified 09/07/18 13:31 [Erythromycin Base] tramadol HCl [From Ultram] AdvReac Intermediate Vomiting Verified 09/07/18 13:31 furosemide AdvReac Leg Cramps Verified 09/07/18 13:31 rofecoxib [From Vioxx] AdvReac Nausea and Verified 09/07/18 13:31 Vomiting *aloe plant sterols Allergy Unknown Cannot Uncoded 09/07/18 13:31 Remember *elderberry Allergy Unknown Cannot Uncoded 09/07/18 13:31 Remember *grape seed extract Allergy Unknown Swelling Uncoded 09/07/18 13:31 *olive leaf extract Allergy Unknown Cannot Uncoded 09/07/18 13:31 Remember Home Meds: Home Meds Calcium Carbonate [Calcium] 500 mg PO BID 05/28/14 [History] Nitroglycerin [Nitrostat] 0.4 mg SL ASDIRECTED PRN 05/28/14 [History] Ubidecarenone [Coenzyme Q10] 100 mg PO BID 05/28/14 [History] Aspirin [Halfprin] 81 mg PO DAILY 08/30/17 [History] L.acidoph,Paracasei, B.lactis [Probiotic] 1 tab PO BID 08/30/17 [History] Magnesium Citrate 400 mg PO BEDTIME 08/30/17 [History] Metoprolol Succinate [Toprol XL 100mg] 100 mg PO DAILY 08/30/17 [History] atorvaSTATin [Lipitor] 40 mg PO BEDTIME 08/30/17 [History] Losartan [Cozaar] 50 mg PO DAILY 10/15/17 [History] Bumetanide [Bumex] 0.5 mg PO DAILY 10/29/17 [History] Potassium Chloride [Klor-Con M20] 20 meq PO DAILY 10/29/17 [History] hydroCHLOROthiazide [Hydrochlorothiazide] 12.5 mg PO DAILY 10/29/17 [History] Sotalol [Betapace] 80 mg PO BID #60 tab 12/17/17 [Rx] predniSONE [Prednisone] 10 mg PO DAILY 08/25/18 [History] Past Medical History HEENT History: Reports: Epistaxis, Impaired Vision Cardiovascular History: Reports: Afib, CAD, High Cholesterol, Hypertension, Stents, Other (See Below) Other Cardiovascular History: states leaking aortic valve Respiratory History: Reports: SOB Gastrointestinal History: Reports: GERD, Hiatal Hernia 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: Musculoskeletal History: Reports: Fracture, Fibromyalgia, Osteoarthritis, Other (See Below) Other Musculoskeletal History: polymyalgia Neurological History: Reports: CVA Endocrine/Metabolic History: Reports: Hypothyroidism Hematologic History: Reports: Anticoagulation Therapy, Blood Transfusion(s) Dermatologic History: Reports: Cellulitis - Infectious Disease History Infectious Disease History: Reports: Chicken Pox, Measles, Mumps, Scarlet Fever - Past Surgical History Head Surgeries/Procedures: Reports: None HEENT Surgical History: Reports: Oral Surgery, Tonsillectomy Cardiovascular Surgical History: Reports: Coronary Artery Stent, Vascular Surgery, Other (See Below) Other Cardiovascular Surgeries/Procedures: Watchman procedure GI Surgical History: Reports: Appendectomy, Other (See Below) Other GI Surgeries/Procedures: 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 Endocrine Surgical History: Reports: None Neurological Surgical History: Reports: Lumbar Spine Musculoskeletal Surgical History: Reports: None Dermatological Surgical History: Reports: None Social & Family History - Family History Psychiatric: Reports: Bipolar - Tobacco Use Smoking Status *Q: Never Smoker Second Hand Smoke Exposure: No - Caffeine Use Caffeine Use: Reports: None - Recreational Drug Use Recreational Drug Use: No ED ROS GENERAL - Review of Systems Review Of Systems: See Below Constitutional: Reports: No Symptoms HEENT: Reports: No Symptoms Respiratory: Reports: No Symptoms Cardiovascular: Reports: Palpitations Endocrine: Reports: No Symptoms GI/Abdominal: Reports: No Symptoms : Reports: No Symptoms Musculoskeletal: Reports: No Symptoms Skin: Reports: No Symptoms Neurological: Reports: No Symptoms Psychiatric: Reports: No Symptoms Hematologic/Lymphatic: Reports: No Symptoms Immunologic: Reports: No Symptoms ED EXAM, GENERAL - Physical Exam Exam: See Below Exam Limited By: No Limitations General Appearance: Alert, No Apparent Distress Nose: Normal Inspection Throat/Mouth: Normal Inspection Head: Atraumatic, Normocephalic Neck: Normal Inspection Respiratory/Chest: Lungs Clear Cardiovascular: Irregularly Irregular GI/Abdominal: Soft, Non-Tender Extremities: Normal Inspection Neurological: Alert, Oriented Psychiatric: Normal Affect, Normal Mood Skin Exam: Warm, Dry Course - Vital Signs Last Recorded V/S: Last Vital Signs Temp 36.4 C 09/07/18 13:35 Pulse 57 L 09/07/18 13:35 Resp 12 09/07/18 13:35 BP 133/73 09/07/18 13:35 Pulse Ox 92 L 09/07/18 13:35 - Re-Assessments/Exams Free Text/Narrative Re-Assessment/Exam: 78 yo with hx of PAF presents with concerns of short run of a-fib with RVR In and out of NSR here, rates always acceptable Her run of RVR was brief and no other symptoms Offered re-assurance, guidelines to return to ER 09/08/18 19:09 Departure - Departure Time of Disposition: 15:00 Disposition: Home, Self-Care 01 Clinical Impression: Atrial fibrillation Qualifiers: Atrial fibrillation type: paroxysmal Qualified Code(s): I48.0 - Paroxysmal atrial fibrillation Instructions: Atrial Fibrillation, [id number] Referrals: Seth Veliz MD [Primary Care Provider] - Forms: ED Department Discharge Additional Instructions: Richard follow up with Dr Veliz this week Return to the ER if your heart rate is persistently over 120 as discussed
== END 2018-09-07 15:10 | disposition home or self-care (01) ==
LOC: JP.ED 13:13
DX: I48.0 Paroxysmal atrial fibrillation (principal); I25.10 Atherosclerotic heart disease of native coronary artery without angina pectoris; E78.00 Pure hypercholesterolemia, unspecified; I10 Essential (primary) hypertension; K21.9 Gastro-esophageal reflux disease without esophagitis; Z79.899 Other long term (current) drug therapy; Z95.5 Presence of coronary angioplasty implant and graft; Z79.01 Long term (current) use of anticoagulants; Z88.8 Allergy status to other drugs, medicaments and biological substances; Z88.1 Allergy status to other antibiotic agents; Z91.018 Allergy to other foods
CPT/HCPCS: 99284

== ENCOUNTER 2018-09-12 13:48 | Emergency (ER) | payer MEDICARE, BC ==
[2018-09-12 14:56] VITALS: BP 133/70
[2018-09-12] MEDS ORDERED: Oxymetazoline 0.05% Nasal Spray 15 ML Bottle NASLF ONE (15:17)
--- NOTE | 2018-09-12 16:33 | CRLUS ---
INDICATION: Leg pain and swelling TECHNIQUE: Ultrasound venous duplex lower left extremity. Compression venous exam was performed using benjamin-scale, color Doppler, and spectral Doppler analysis. COMPARISON: None. FINDINGS: Sonographic imaging demonstrates the left common femoral, deep femoral, superficial femoral, popliteal, posterior tibial and greater saphenous veins to sure normal blood flow. IMPRESSION: Normal left lower extremity venous ultrasound, no sign of deep venous thrombosis. Dictated by Momo Ferrara MD @ Sep 12 2018 4:30PM Signed by Dr. Momo Ferrara @ Sep 12 2018 4:32PM
--- NOTE | 2018-09-12 16:41 | EDM.PDOC ---
ED HPI GENERAL MEDICAL PROBLEM - General Chief Complaint: ENT Problem Stated Complaint: BLOODY NOSE Time Seen by Provider: 09/12/18 14:55 Source of Information: Reports: Patient History Limitations: Reports: No Limitations - History of Present Illness INITIAL COMMENTS - FREE TEXT/NARRATIVE: pt arrived with bleeding in the from the left nostril. She is on plavix and asa. She is also concerned about some bruised look on the anterior portion of her rt leg. This is tender to palpate. Pt has had an ablation and is now off of eleoquist. Onset: Today, Sudden Duration: Hour(s): Location: Reports: Face, Lower Extremity, Left Associated Symptoms: Reports: No Other Symptoms Left Lower Leg Pain Score (Numeric/FACES): 8 - Related Data Allergies Allergy/AdvReac Type Severity Reaction Status Date / Time clindamycin Allergy Severe Joint Pain Verified 09/12/18 15:05 morphine Allergy Severe Anaphylactic Verified 09/12/18 15:05 Shock nystatin Allergy Intermediate Swelling Verified 09/12/18 15:05 acetaminophen [From NyQuil] Allergy Swelling Verified 09/12/18 15:05 aspirin Allergy Other Verified 09/12/18 15:05 casein Allergy Edema Verified 09/12/18 15:05 dextromethorphan HBr Allergy Swelling Verified 09/12/18 15:05 [From NyQuil] doxylamine succinate Allergy Swelling Verified 09/12/18 15:05 [From NyQuil] gluten Allergy Vomiting Verified 09/12/18 15:05 pseudoephedrine HCl Allergy Swelling Verified 09/12/18 15:05 [From NyQuil] codeine AdvReac Severe Vomiting Verified 09/12/18 15:05 Sulfa (Sulfonamide AdvReac Severe Vomiting Verified 09/12/18 15:05 Antibiotics) celecoxib [From Celebrex] AdvReac Intermediate Abdominal Verified 09/12/18 15:05 Pain erythromycin base AdvReac Intermediate Giddiness Verified 09/12/18 15:05 [Erythromycin Base] tramadol HCl [From Ultram] AdvReac Intermediate Vomiting Verified 09/12/18 15:05 furosemide AdvReac Leg Cramps Verified 09/12/18 15:05 rofecoxib [From Vioxx] AdvReac Nausea and Verified 09/12/18 15:05 Vomiting *aloe plant sterols Allergy Unknown Cannot Uncoded 09/12/18 15:05 Remember *elderberry Allergy Unknown Cannot Uncoded 09/12/18 15:05 Remember *grape seed extract Allergy Unknown Swelling Uncoded 09/12/18 15:05 *olive leaf extract Allergy Unknown Cannot Uncoded 09/12/18 15:05 Remember Home Meds: Home Meds Calcium Carbonate [Calcium] 500 mg PO BID 05/28/14 [History] Nitroglycerin [Nitrostat] 0.4 mg SL ASDIRECTED PRN 05/28/14 [History] Ubidecarenone [Coenzyme Q10] 100 mg PO BID 05/28/14 [History] Aspirin [Halfprin] 81 mg PO DAILY 08/30/17 [History] L.acidoph,Paracasei, B.lactis [Probiotic] 1 tab PO BID 08/30/17 [History] Magnesium Citrate 400 mg PO BEDTIME 08/30/17 [History] Metoprolol Succinate [Toprol XL 100mg] 100 mg PO DAILY 08/30/17 [History] atorvaSTATin [Lipitor] 40 mg PO BEDTIME 08/30/17 [History] Losartan [Cozaar] 50 mg PO DAILY 10/15/17 [History] Bumetanide [Bumex] 0.5 mg PO DAILY 10/29/17 [History] Potassium Chloride [Klor-Con M20] 20 meq PO DAILY 10/29/17 [History] hydroCHLOROthiazide [Hydrochlorothiazide] 12.5 mg PO DAILY 10/29/17 [History] Sotalol [Betapace] 80 mg PO BID #60 tab 12/17/17 [Rx] predniSONE [Prednisone] 5 mg PO DAILY 08/25/18 [History] Clopidogrel [Plavix] 75 mg PO BEDTIME 09/12/18 [History] Past Medical History HEENT History: Reports: Epistaxis, Impaired Vision Cardiovascular History: Reports: Afib, CAD, High Cholesterol, Hypertension, Stents, Other (See Below) Other Cardiovascular History: states leaking aortic valve Respiratory History: Reports: SOB Gastrointestinal History: Reports: GERD, Hiatal Hernia 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: Musculoskeletal History: Reports: Fracture, Fibromyalgia, Osteoarthritis, Other (See Below) Other Musculoskeletal History: polymyalgia Neurological History: Reports: CVA Endocrine/Metabolic History: Reports: Hypothyroidism Hematologic History: Reports: Anticoagulation Therapy, Blood Transfusion(s) Dermatologic History: Reports: Cellulitis - Infectious Disease History Infectious Disease History: Reports: Chicken Pox - Past Surgical History Head Surgeries/Procedures: Reports: None HEENT Surgical History: Reports: Oral Surgery, Tonsillectomy Cardiovascular Surgical History: Reports: Coronary Artery Stent, Vascular Surgery, Other (See Below) Other Cardiovascular Surgeries/Procedures: Watchman procedure GI Surgical History: Reports: Appendectomy, Other (See Below) Other GI Surgeries/Procedures: 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 Endocrine Surgical History: Reports: None Neurological Surgical History: Reports: Lumbar Spine Musculoskeletal Surgical History: Reports: None Dermatological Surgical History: Reports: None Social & Family History - Family History Psychiatric: Reports: Bipolar - Tobacco Use Smoking Status *Q: Never Smoker Second Hand Smoke Exposure: No - Caffeine Use Caffeine Use: Reports: None - Recreational Drug Use Recreational Drug Use: No ED ROS ENT - Review of Systems Review Of Systems: See Below Constitutional: Reports: No Symptoms HEENT: Reports: Nosebleed, Other ( Pt had a nosebleed fron the left nare. This had pretty muchj stopped by the time she got here. ) Respiratory: Reports: No Symptoms Cardiovascular: Reports: No Symptoms Endocrine: Reports: No Symptoms GI/Abdominal: Reports: No Symptoms : Reports: No Symptoms Musculoskeletal: Reports: Other (Pt has a discolored area on the front of her lower leg. This is tender. ) Skin: Reports: No Symptoms Neurological: Reports: No Symptoms ED EXAM, ENT - Physical Exam Exam: See Below Text/Narrative:: Pt had a nosebleed from the left nare. This had stopped by the time she got here. She had some discoloration and tenderness plus swellin on the front of the lef lower leg. i Exam Limited By: No Limitations General Appearance: Alert, Anxious, Mild Distress Ears: Normal TMs Nose: Other ( There was no definite site of bleeding in the left nare. The bleeding had stopped by that time. ) Mouth/Throat: Normal Inspection Head: Atraumatic Neck: Normal Inspection Respiratory/Chest: No Respiratory Distress Cardiovascular: Regular Rate, Rhythm Extremities: Other ( Left lower leg was discolored and tender. She was tender in the calf. ) Neurological: Alert, Oriented, Normal Cognition Psychiatric: Normal Affect Course - Vital Signs Last Recorded V/S: Last Vital Signs Temp 36.2 C 09/12/18 15:15 Pulse 60 09/12/18 15:15 Resp 16 09/12/18 15:15 BP 133/70 09/12/18 15:15 Pulse Ox 95 09/12/18 15:15 - Orders/Labs/Meds Meds: Medications Discontinued Medications Generic Name Dose Route Start Last Admin Trade Name Yvette PRN Reason Stop Dose Admin Oxymetazoline HCl 2 ml 09/12/18 15:17 09/12/18 16:44 Afrin Original 0.05% Nasal Blue Diamond NASLF 09/12/18 15:18 1 spray ONETIME ONE Administration - Re-Assessments/Exams Free Text/Narrative Re-Assessment/Exam: 09/13/18 08:42 pt had a US on the left leg that was neg. She had no further bleeding from the left nare. She was sprayed with afrin in the left nare. Departure - Departure Time of Disposition: 16:39 Disposition: Home, Self-Care 01 Condition: Fair Clinical Impression: Nosebleed, Pain in left leg - Discharge Information Instructions: Nosebleed, [id number]-Lwyw, Pain Without a Known Cause Referrals: Seth Veliz MD [Primary Care Provider] - Forms: ED Department Discharge Care Plan Goals: elevate left left, warm packs to the area, call if site should get redder. afrin nasal spray to the rt nare tid to keep the vessels shrunk down, cool mist humidifier.
== END 2018-09-12 16:56 | disposition home or self-care (01) ==
LOC: JP.ED 13:48
DX: R04.0 Epistaxis (principal); M79.605 Pain in left leg; I48.91 Unspecified atrial fibrillation; I25.10 Atherosclerotic heart disease of native coronary artery without angina pectoris; E78.00 Pure hypercholesterolemia, unspecified; I10 Essential (primary) hypertension; E03.9 Hypothyroidism, unspecified; Z95.5 Presence of coronary angioplasty implant and graft; Z88.8 Allergy status to other drugs, medicaments and biological substances; Z79.899 Other long term (current) drug therapy; Z88.1 Allergy status to other antibiotic agents; Z79.01 Long term (current) use of anticoagulants
CPT/HCPCS: 93971-LT; 99282; 99283-25

== ENCOUNTER 2020-10-28 07:32 | Day surgery (SDC) | payer MEDICARE, BC ==
[2020-10-28] MEDS ORDERED: Sodium Chloride 0.9% 10 ML Syringe FLUSH PRN (08:00)
[2020-10-28 09:41] VITALS: BP 196/91; PULSE 52
--- NOTE | 2020-10-28 13:32 | OR ---
DATE OF PROCEDURE: 10/28/2020 SURGEON: Kiana Neumann MD POSTOPERATIVE CARE: Postoperative care will be provided mainly at the [address] [place] [address] [facility] in conjunction with [facility]. PREOPERATIVE DIAGNOSIS: Cataract, right eye. POSTOPERATIVE DIAGNOSIS: Cataract, right eye. PROCEDURE: Phacoemulsification with intraocular lens placement, right eye. ANESTHESIA: Topical and intracameral. ESTIMATED BLOOD LOSS: Minimal. COMPLICATIONS: None. PATHOLOGY SPECIMENS: None. SURGICAL FINDINGS: None. INDICATION FOR PROCEDURE: The patient is an 80-year-old female with history of a visually significant cataract in the right eye, which interfered with activities of daily living. This consisted of a nuclear sclerosis cataract. Following careful discussion of the risks, benefits and alternatives to cataract extraction with intraocular lens placement including blindness and , the patient elected to proceed, and informed, written consent was obtained prior to the procedure. DESCRIPTION OF THE PROCEDURE: The patient was previously identified, and a lydia placed above the right eye. All sources, including the patient, indicated that the right eye was the correct eye. The patient was subsequently taken to the operating room where standard monitors were applied. The patient was then prepped and draped in the usual sterile fashion for ophthalmic surgery. Attention was first directed at the 12 o'clock position where a paracentesis port was fashioned. Shugar solution followed by Viscoat was instilled into the eye. Attention was then directed to the 8:30 position where a triplanar incision was made in a near-clear manner using a keratome. A continuous capsulorrhexis was then made using a combination of the cystotome and Utrata forceps. Hydrodissection was achieved using a balanced salt solution, and the lens rotated nicely. Phacoemulsification was then done using a modified [id number] technique without complication. Phaco time was 7.88 CDE. The remaining cortex was removed using the irrigation/aspiration handpiece. Provisc was then instilled into the eye. A Technis lens, model DCB00, at 20.0 Diopters was then placed in the capsular bag using an Sherburn injector. The remaining viscoelastic was removed using the irrigation/aspiration forceps. All wounds were then checked and found to be watertight. The lid speculum and drapes were removed. Maxitrol ointment was placed in the patient's right eye, and the eye was shielded. The patient tolerated the procedure well. The patient was instructed to follow up tomorrow. All needle and sponge counts were correct at the end of the procedure. There were no surgical findings. Kiana Neumann MD /[id number]
== END 2020-10-28 09:44 | disposition home or self-care (01) ==
LOC: JP.SDS 07:32
PROVIDERS: ATTEND Ophthalmology
DX: H25.11 Age-related nuclear cataract, right eye (principal)
CPT/HCPCS: 66984; V2632

== ENCOUNTER 2020-11-11 06:36 | Day surgery (SDC) | payer MEDICARE, BC ==
[2020-11-11] MEDS ORDERED: Sodium Chloride 0.9% 10 ML Syringe FLUSH PRN (07:00)
[2020-11-11 10:05] VITALS: BP 181/87; PULSE 52
--- NOTE | 2020-11-11 11:05 | OR ---
DATE OF PROCEDURE: 11/11/2020 SURGEON: Kiana Neumann MD POSTOPERATIVE CARE: Postoperative care will be provided mainly at the [address] [place] [address] [facility] in conjunction with [facility]. PREOPERATIVE DIAGNOSIS: Cataract, left eye. POSTOPERATIVE DIAGNOSIS: Cataract, left eye. PROCEDURE: Phacoemulsification with intraocular lens placement, left eye. ANESTHESIA: Topical and intracameral. ESTIMATED BLOOD LOSS: Minimal. COMPLICATIONS: None. PATHOLOGY SPECIMENS: None. SURGICAL FINDINGS: None. INDICATION FOR PROCEDURE: The patient is an 80-year-old female with history of a visually significant cataract in the left eye, which interfered with activities of daily living. This consisted of a nuclear sclerosis cataract. Following careful discussion of the risks, benefits and alternatives to cataract extraction with intraocular lens placement including blindness and , the patient elected to proceed, and informed, written consent was obtained prior to the procedure. DESCRIPTION OF THE PROCEDURE: The patient was previously identified, and a lydia placed above the left eye. All sources, including the patient, indicated that the left eye was the correct eye. The patient was subsequently taken to the operating room where standard monitors were applied. The patient was then prepped and draped in the usual sterile fashion for ophthalmic surgery. Attention was first directed at the 12 o'clock position where a paracentesis port was fashioned. Shugar solution followed by Viscoat was instilled into the eye. Attention was then directed to the 8:30 position where a triplanar incision was made in a near-clear manner using a keratome. A continuous capsulorrhexis was then made using a combination of the cystotome and Utrata forceps. Hydrodissection was achieved using a balanced salt solution, and the lens rotated nicely. Phacoemulsification was then done using a modified [id number] technique without complication. Phaco time was 7.96 CDE. The remaining cortex was removed using the irrigation/aspiration handpiece. Provisc was then instilled into the eye. A Technis lens, model DCB00, at 21.0 diopters was then placed in the capsular bag using an Hildebran injector. The remaining viscoelastic was removed using the irrigation/aspiration forceps. All wounds were then checked and found to be watertight. The lid speculum and drapes were removed. Maxitrol ointment was placed in the patient's left eye, and the eye was shielded. The patient tolerated the procedure well. The patient was instructed to follow up tomorrow. All needle and sponge counts were correct at the end of the procedure. There were no surgical findings. Kiana Neumann MD /[id number]
== END 2020-11-11 08:45 | disposition home or self-care (01) ==
LOC: JP.SDS 06:36
PROVIDERS: ATTEND Ophthalmology
DX: E11.36 Type 2 diabetes mellitus with diabetic cataract (principal); H25.12 Age-related nuclear cataract, left eye; E78.5 Hyperlipidemia, unspecified; I12.9 Hypertensive chronic kidney disease with stage 1 through stage 4 chronic kidney disease, or unspecified chronic kidney disease; E11.22 Type 2 diabetes mellitus with diabetic chronic kidney disease; N18.9 Chronic kidney disease, unspecified
CPT/HCPCS: V2632

== ENCOUNTER 2022-11-20 12:00 | Emergency (ER) | payer MEDICARE, BC ==
[2022-11-20] MEDS ORDERED: Sodium Chloride 0.9% 10 ML Syringe FLUSH PRN (12:16)
[2022-11-20] MEDS ORDERED: Labetalol 20 MG/4 ML Syringe IVPUSH ONE (12:23)
[2022-11-20 12:27] LABS: BASOPHILS ABSOLUTE AUTO 0.04 K/uL (0.00-0.10); BASOPHILS PERCENT AUTO 0.4 % (0.1-1.3); EOSINOPHILS ABSOLUTE AUTO 0.15 K/uL (0.00-0.40); EOSINOPHILS PERCENT AUTO 1.6 % (0.0-5.4); HEMATOCRIT 44.4 % (34.3-46.0); HEMOGLOBIN 14.4 g/dL (11.2-15.5); IMMATURE GRAN ABSOLUTE AUTO 0.03 K/uL (0.00-0.23); IMMATURE GRAN PERCENT AUTO 0.3 % (0.0-0.7); LYMPHOCYTES ABSOLUTE AUTO 1.57 K/uL (0.8-3.3); LYMPHOCYTES PERCENT AUTO 16.6 % (11.4-47.7); MEAN CORPUSCULAR HEMOGLOBIN 29.9 pg (31.6-35.5); MEAN CORPUSCULAR HGB CONC 32.4 g/dL (31.6-35.5); MEAN CORPUSCULAR VOLUME 92.1 fL (81.4-99.0); MONOCYTES ABSOLUTE AUTO 0.64 K/uL (0.20-0.90); MONOCYTES PERCENT AUTO 6.8 % (3.3-12.6); NEUTROPHILS PERCENT AUTO 74.3 % (40.0-78.1); PLATELET COUNT,PLT 200 K/uL (130-375); RED BLOOD CELL COUNT 4.82 M/uL (3.77-5.24); WHITE BLOOD CELL COUNT,WBC 9.4 K/uL (3.2-11.0)
[2022-11-20 12:50] LABS: ALANINE AMINOTRANSFERASE,ALT 26 U/L (12-78); ALBUMIN 3.5 g/dL (3.4-5.0); ALKALINE PHOSPHATASE 92 U/L (46-116); ANION GAP 6.9 mmol/L (5.0-14.0); ASPARTATE AMNIOTRANSFERASE,AST 23 U/L (15-37); BILIRUBIN TOTAL 0.6 mg/dL (0.2-1.0); BLOOD UREA NITROGEN,BUN 16 mg/dL (7-18); CALCIUM 9.1 mg/dL (8.5-10.1); CARBON DIOXIDE,CO2 31 mmol/L (21-32); CHLORIDE,CL 105 mmol/L (100-108); CREATININE 0.7 mg/dL (0.6-1.0); ESTIMATED GFR 85 mL/min (>60); GLUCOSE RANDOM 100 mg/dL (74-106); POTASSIUM,K 3.7 mmol/L (3.6-5.2); PROTEIN TOTAL,TP 7.2 g/dL (6.4-8.2); SODIUM,NA 143 mmol/L (140-148); TROPONIN I HIGH SENSITIVITY 9.2 pg/mL (<=60.3)
[2022-11-20 12:51] LABS: PROTHROMBIN TIME 10.4 sec (9.2-10.6); PTT,PARTIAL THROMBOPLSTIN TIME 24.3 sec (21.8-27.3)
[2022-11-20] MEDS ORDERED: Bumetanide 1 MG Tab PO ONE (13:27)
[2022-11-20 14:22] LABS: APPEARANCE,URINE CLEAR (CLEAR); BILIRUBIN,URINE NEGATIVE (NEGATIVE); COLOR,URINE YELLOW (YELLOW); GLUCOSE,URINE NEGATIVE (NEGATIVE); KETONES,URINE NEGATIVE (NEGATIVE); LEUKOCYTE ESTERASE,URINE TRACE (NEGATIVE); NITRITE,URINE POSITIVE (NEGATIVE); OCCULT BLOOD,URINE NEGATIVE (NEGATIVE); PH,URINE 7.5 (5.0-8.0); PROTEIN,URINE NEGATIVE (NEGATIVE); UROBILINOGEN,URINE 0.2 EU/dL (0.2-1.0)
[2022-11-20 14:30] LABS: AMORPHOUS SEDIMENT,URINE NOT SEEN; BACTERIA,URINE MANY; EPITHELIAL CELLS,URINE RARE; MUCUS,URINE NOT SEEN; RBC,URINE 0-5 (0-5); WBC,URINE 0-5 (0-5)
[2022-11-20 14:55] VITALS: BP 184/91; PULSE 48
== END 2022-11-20 15:07 | disposition home or self-care (01) ==
LOC: JP.ED 12:00
DX: I16.9 Hypertensive crisis, unspecified (principal); N30.00 Acute cystitis without hematuria; I48.91 Unspecified atrial fibrillation; I25.10 Atherosclerotic heart disease of native coronary artery without angina pectoris; I10 Essential (primary) hypertension; K21.9 Gastro-esophageal reflux disease without esophagitis; E03.9 Hypothyroidism, unspecified; Z79.01 Long term (current) use of anticoagulants; Z88.8 Allergy status to other drugs, medicaments and biological substances; Z88.1 Allergy status to other antibiotic agents; Z88.5 Allergy status to narcotic agent; Z88.2 Allergy status to sulfonamides; Z91.048 Other nonmedicinal substance allergy status; Z91.018 Allergy to other foods; Z79.899 Other long term (current) drug therapy
CPT/HCPCS: 36415; 70450; 80053; 81001; 82947; 84484; 85025; 85610; 85730; 87086; 87088; 87186; 93005; 96374; 99284; A9270; J3490

== ENCOUNTER 2023-05-22 16:19 | Inpatient (IN) | payer MEDICARE, BC ==
[2023-05-22 18:57] LABS: APPEARANCE,URINE CLEAR (CLEAR); BILIRUBIN,URINE NEGATIVE (NEGATIVE); COLOR,URINE YELLOW (YELLOW); GLUCOSE,URINE NEGATIVE (NEGATIVE); KETONES,URINE NEGATIVE (NEGATIVE); LEUKOCYTE ESTERASE,URINE NEGATIVE (NEGATIVE); NITRITE,URINE NEGATIVE (NEGATIVE); OCCULT BLOOD,URINE NEGATIVE (NEGATIVE); PH,URINE 8.5 (5.0-8.0); PROTEIN,URINE NEGATIVE (NEGATIVE); UROBILINOGEN,URINE 0.2 EU/dL (0.2-1.0)
[2023-05-22 19:00] LABS: BASOPHILS PERCENT AUTO 0.2 % (0.1-1.3); EOSINOPHILS ABSOLUTE AUTO 0.04 K/uL (0.00-0.40); EOSINOPHILS PERCENT AUTO 0.4 % (0.0-5.4); HEMATOCRIT 40.9 % (34.3-46.0); HEMOGLOBIN 13.3 g/dL (11.2-15.5); IMMATURE GRAN ABSOLUTE AUTO 0.04 K/uL (0.00-0.23); IMMATURE GRAN PERCENT AUTO 0.4 % (0.0-0.7); LYMPHOCYTES ABSOLUTE AUTO 1.19 K/uL (0.8-3.3); LYMPHOCYTES PERCENT AUTO 10.5 % (11.4-47.7); MEAN CORPUSCULAR HEMOGLOBIN 30.2 pg (31.6-35.5); MEAN CORPUSCULAR HGB CONC 32.5 g/dL (31.6-35.5); MONOCYTES ABSOLUTE AUTO 0.69 K/uL (0.20-0.90); MONOCYTES PERCENT AUTO 6.1 % (3.3-12.6); NEUTROPHILS ABSOLUTE AUTO 9.37 K/uL (1.0-7.6); NEUTROPHILS PERCENT AUTO 82.4 % (40.0-78.1); PLATELET COUNT,PLT 180 K/uL (130-375); WHITE BLOOD CELL COUNT,WBC 11.4 K/uL (3.2-11.0)
[2023-05-22 19:01] LABS: BASOPHILS ABSOLUTE AUTO 0.02 K/uL (0.00-0.10)
[2023-05-22 19:04] LABS: AMORPHOUS SEDIMENT,URINE NOT SEEN; BACTERIA,URINE FEW; EPITHELIAL CELLS,URINE FEW; MUCUS,URINE FEW; RBC,URINE 0-5 (0-5); WBC,URINE 0-5 (0-5)
[2023-05-22 19:16] LABS: ANION GAP 6.1 mmol/L (5.0-14.0); CALCIUM 8.8 mg/dL (8.5-10.1); CREATININE 0.7 mg/dL (0.6-1.0); EST CRCL DRUG DOSING (CG) 55.01 mL/min
[2023-05-22 19:47] LABS: CORONAVIRUS COVID-19 NAA NEGATIVE (NEGATIVE); INFLUENZA A NAA NEGATIVE (NEGATIVE); INFLUENZA B NAA NEGATIVE (NEGATIVE); RESPIRATORY SYNCYTIAL VIR NAA NEGATIVE (NEGATIVE)
[2023-05-22] MEDS ORDERED: Magnesium Hydroxide 400 MG/5 ML Susp 30 ML Cup PO PRN (20:38)
[2023-05-22] MEDS ORDERED: Ondansetron 4 MG/2 ML SDV IV PRN (20:38)
[2023-05-22] MEDS ORDERED: Ondansetron 4 MG Tab.DIS PO PRN (20:38)
[2023-05-22] MEDS ORDERED: MAGNESIUM CITRATE 100 MG PO PRN (23:03)
[2023-05-23] MEDS: Melatonin 3 MG Tab PO PRN ×2 (02:26→22:53)
[2023-05-23] MEDS: Acetaminophen 325 MG Tab PO PRN ×4 (02:27→22:52)
[2023-05-23] MEDS ORDERED: LOSARTAN 50 MG PO SCH (09:00)
[2023-05-23] MEDS ORDERED: Losartan 50 MG Tab PO SCH (09:00)
[2023-05-23] MEDS ORDERED: UBIDECARENONE 100 MG PO SCH (09:00)
[2023-05-23] MEDS ORDERED: Potassium Chloride 20 MEQ Tab.ER PO SCH (09:00)
[2023-05-23] MEDS ORDERED: Labetalol 100 MG Tab PO SCH (09:00)
[2023-05-23] MEDS ORDERED: LABETALOL 200 MG PO SCH ×2 (09:00)
[2023-05-23] MEDS ORDERED: guaiFENesin 600 MG Tab.ER PO SCH (09:00)
[2023-05-23] MEDS ORDERED: Losartan 50 MG **PTOM PO SCH (09:00)
[2023-05-23] MEDS ORDERED: Potassium Chloride 20 MEQ **PTOM PO SCH (09:00)
[2023-05-23] MEDS: predniSONE 5 MG Tab PO SCH (09:13)
[2023-05-23] MEDS: Potassium Chloride 20 MEQ **PTOM PO SCH ×2 (09:13→17:00)
[2023-05-23] MEDS: Sotalol 80 MG Tab PO SCH ×2 (09:14→21:13)
[2023-05-23] MEDS: Bumetanide 1 MG Tab PO SCH (09:15)
[2023-05-23] MEDS: Enoxaparin 40 MG/0.4 ML Syringe SUBCUT SCH (09:16)
[2023-05-23] MEDS: Lactobacillus Rhamnosus GG (Probiotic) Cap PO SCH (09:16)
[2023-05-23] MEDS: Calcium Carbonate 500 MG Tab.Chew PO SCH (09:17)
[2023-05-23] MEDS: guaiFENesin 600 MG Tab.ER PO SCH ×2 (13:47→21:14)
[2023-05-23] MEDS: [UNRECOGNIZED DRUG - OTHER] PO SCH (13:48)
[2023-05-23] MEDS: Losartan 50 MG Tab PO SCH (21:13)
[2023-05-23] MEDS: Labetalol 100 MG Tab PO SCH (21:13)
[2023-05-24] MEDS: [UNRECOGNIZED DRUG - OTHER] PO SCH (07:45)
[2023-05-24] MEDS: Acetaminophen/HYDROcodone 325-5 MG Tab PO PRN (08:30)
[2023-05-24] MEDS: Potassium Chloride 20 MEQ **PTOM PO SCH ×2 (08:40→17:20)
[2023-05-24] MEDS: predniSONE 5 MG Tab PO SCH (08:41)
[2023-05-24] MEDS: Sotalol 80 MG Tab PO SCH ×2 (08:42→20:54)
[2023-05-24] MEDS: Bumetanide 1 MG Tab PO SCH (08:42)
[2023-05-24] MEDS: Labetalol 100 MG Tab PO SCH ×2 (08:42→20:56)
[2023-05-24] MEDS: guaiFENesin 600 MG Tab.ER PO SCH ×2 (08:43→20:52)
[2023-05-24] MEDS: Calcium Carbonate 500 MG Tab.Chew PO SCH (08:43)
[2023-05-24] MEDS: Enoxaparin 40 MG/0.4 ML Syringe SUBCUT SCH (08:43)
[2023-05-24] MEDS: Lactobacillus Rhamnosus GG (Probiotic) Cap PO SCH (08:43)
[2023-05-24] MEDS: Losartan 50 MG Tab PO SCH ×2 (08:43→20:55)
[2023-05-24] MEDS: MILK THISTLE SEED EXTRACT 200 MG PO SCH (11:03)
[2023-05-24] MEDS: [UNRECOGNIZED DRUG - OTHER] PO SCH ×2 (11:03→11:04)
[2023-05-24] MEDS: HYDROXYTRYPTOPHAN 100 MG PO SCH ×3 (14:20→20:53)
[2023-05-24] MEDS: COENZYME Q PO SCH ×2 (14:24→20:58)
[2023-05-24] MEDS: Sennosides/Docusate Sodium 50-8.6 MG Tab PO PRN (20:56)
[2023-05-24] MEDS: Acetaminophen 325 MG Tab PO PRN (20:56)
[2023-05-24] MEDS: Melatonin 3 MG Tab PO PRN (21:07)
[2023-05-25] MEDS: Acetaminophen/HYDROcodone 325-5 MG Tab PO PRN ×3 (03:36→20:28)
[2023-05-25] MEDS: [UNRECOGNIZED DRUG - OTHER] PO SCH (08:17)
[2023-05-25] MEDS: Potassium Chloride 20 MEQ **PTOM PO SCH ×2 (08:18→16:04)
[2023-05-25] MEDS: predniSONE 5 MG Tab PO SCH (08:19)
[2023-05-25] MEDS: Sotalol 80 MG Tab PO SCH ×2 (08:20→20:33)
[2023-05-25] MEDS: Bumetanide 1 MG Tab PO SCH (08:22)
[2023-05-25] MEDS: Losartan 50 MG Tab PO SCH ×2 (08:23→20:34)
[2023-05-25] MEDS: Lactobacillus Rhamnosus GG (Probiotic) Cap PO SCH (08:24)
[2023-05-25] MEDS: Enoxaparin 40 MG/0.4 ML Syringe SUBCUT SCH (08:25)
[2023-05-25] MEDS: Labetalol 100 MG Tab PO SCH ×2 (08:26→20:32)
[2023-05-25] MEDS: guaiFENesin 600 MG Tab.ER PO SCH ×2 (08:26→20:33)
[2023-05-25] MEDS: Acetaminophen 325 MG Tab PO PRN (08:28)
[2023-05-25] MEDS: Sennosides/Docusate Sodium 50-8.6 MG Tab PO PRN (08:28)
[2023-05-25] MEDS: COENZYME Q PO SCH ×2 (08:29→20:32)
[2023-05-25] MEDS: Calcium Carbonate 500 MG Tab.Chew PO SCH ×2 (08:30→10:02)
[2023-05-25] MEDS ORDERED: Bisacodyl 10 MG Supp RECTAL ONE (11:15)
[2023-05-25] MEDS ORDERED: Sodium Phosphate,Monobasic/Sodium Phosphate,Dibasic Enema 133 ML Bottle RECTAL PRN (11:15)
[2023-05-25] MEDS: Melatonin 3 MG Tab PO PRN (20:28)
[2023-05-25] MEDS: HYDROXYTRYPTOPHAN 100 MG PO SCH (20:31)
[2023-05-25] MEDS ORDERED: Magnesium Citrate Solution 296 ML Bottle PO ONE (21:00)
[2023-05-26] MEDS: COENZYME Q PO SCH ×2 (08:17→20:40)
[2023-05-26] MEDS: Enoxaparin 40 MG/0.4 ML Syringe SUBCUT SCH (08:21)
[2023-05-26] MEDS: Sotalol 80 MG Tab PO SCH ×2 (08:21→20:41)
[2023-05-26] MEDS: Labetalol 100 MG Tab PO SCH ×2 (08:21→20:41)
[2023-05-26] MEDS: guaiFENesin 600 MG Tab.ER PO SCH ×2 (08:21→20:42)
[2023-05-26] MEDS: Lactobacillus Rhamnosus GG (Probiotic) Cap PO SCH (08:21)
[2023-05-26] MEDS: predniSONE 5 MG Tab PO SCH (08:22)
[2023-05-26] MEDS: [UNRECOGNIZED DRUG - OTHER] PO SCH (08:22)
[2023-05-26] MEDS: Calcium Carbonate 500 MG Tab.Chew PO SCH (08:22)
[2023-05-26] MEDS: Potassium Chloride 20 MEQ **PTOM PO SCH ×2 (08:22→16:28)
[2023-05-26] MEDS: Losartan 50 MG Tab PO SCH ×2 (08:22→20:42)
[2023-05-26] MEDS: Bumetanide 1 MG Tab PO SCH (08:22)
[2023-05-26] MEDS: Docusate Sodium 100 MG Cap PO SCH ×2 (11:06→20:41)
[2023-05-26] MEDS: Acetaminophen 325 MG Tab PO PRN (12:07)
[2023-05-26] MEDS: Acetaminophen/HYDROcodone 325-5 MG Tab PO PRN (12:07)
[2023-05-26] MEDS: Cyclobenzaprine 10 MG Tab PO PRN (13:48)
[2023-05-26] MEDS: HYDROXYTRYPTOPHAN 100 MG PO SCH (20:40)
[2023-05-27] MEDS: Cyclobenzaprine 10 MG Tab PO PRN (03:33)
[2023-05-27] MEDS: [UNRECOGNIZED DRUG - OTHER] PO SCH (08:15)
[2023-05-27] MEDS: COENZYME Q PO SCH ×2 (08:15→20:56)
[2023-05-27] MEDS: Sotalol 80 MG Tab PO SCH ×2 (08:16→20:56)
[2023-05-27] MEDS: Lactobacillus Rhamnosus GG (Probiotic) Cap PO SCH (08:16)
[2023-05-27] MEDS: guaiFENesin 600 MG Tab.ER PO SCH ×2 (08:16→20:57)
[2023-05-27] MEDS: Labetalol 100 MG Tab PO SCH ×2 (08:16→20:58)
[2023-05-27] MEDS: Enoxaparin 40 MG/0.4 ML Syringe SUBCUT SCH (08:16)
[2023-05-27] MEDS: Potassium Chloride 20 MEQ **PTOM PO SCH ×2 (08:16→18:13)
[2023-05-27] MEDS: predniSONE 5 MG Tab PO SCH (08:16)
[2023-05-27] MEDS: Bumetanide 1 MG Tab PO SCH (08:16)
[2023-05-27] MEDS: Losartan 50 MG Tab PO SCH ×2 (08:17→20:57)
[2023-05-27] MEDS: Docusate Sodium 100 MG Cap PO SCH ×2 (08:17→20:57)
[2023-05-27] MEDS: Calcium Carbonate 500 MG Tab.Chew PO SCH (08:17)
[2023-05-27] MEDS: Acetaminophen/HYDROcodone 325-5 MG Tab PO PRN (09:38)
[2023-05-27] MEDS: Melatonin 3 MG Tab PO PRN (20:56)
[2023-05-27] MEDS: Acetaminophen 325 MG Tab PO PRN (20:56)
[2023-05-27] MEDS: HYDROXYTRYPTOPHAN 100 MG PO SCH (20:58)
[2023-05-28] MEDS: [UNRECOGNIZED DRUG - OTHER] PO SCH (08:06)
[2023-05-28] MEDS: Potassium Chloride 20 MEQ **PTOM PO SCH ×2 (08:07→17:12)
[2023-05-28] MEDS: predniSONE 5 MG Tab PO SCH (08:08)
[2023-05-28] MEDS: Sotalol 80 MG Tab PO SCH ×2 (08:09→20:13)
[2023-05-28] MEDS: Docusate Sodium 100 MG Cap PO SCH ×2 (08:14→20:13)
[2023-05-28] MEDS: Bumetanide 1 MG Tab PO SCH (08:14)
[2023-05-28] MEDS: Losartan 50 MG Tab PO SCH ×2 (08:15→20:13)
[2023-05-28] MEDS: Lactobacillus Rhamnosus GG (Probiotic) Cap PO SCH (08:15)
[2023-05-28] MEDS: guaiFENesin 600 MG Tab.ER PO SCH ×2 (08:16→20:13)
[2023-05-28] MEDS: Labetalol 100 MG Tab PO SCH ×2 (08:16→20:14)
[2023-05-28] MEDS: Calcium Carbonate 500 MG Tab.Chew PO SCH (08:17)
[2023-05-28] MEDS: COENZYME Q PO SCH ×2 (08:17→20:14)
[2023-05-28] MEDS: Enoxaparin 40 MG/0.4 ML Syringe SUBCUT SCH (08:18)
[2023-05-28] MEDS: Acetaminophen/HYDROcodone 325-5 MG Tab PO PRN ×2 (12:03→21:58)
[2023-05-28] MEDS: HYDROXYTRYPTOPHAN 100 MG PO SCH (20:12)
[2023-05-29] MEDS: Acetaminophen 325 MG Tab PO PRN (04:41)
[2023-05-29] MEDS: [UNRECOGNIZED DRUG - OTHER] PO SCH (08:23)
[2023-05-29] MEDS: Potassium Chloride 20 MEQ **PTOM PO SCH (08:23)
[2023-05-29] MEDS: predniSONE 5 MG Tab PO SCH (08:24)
[2023-05-29] MEDS: Sotalol 80 MG Tab PO SCH (08:24)
[2023-05-29] MEDS: Docusate Sodium 100 MG Cap PO SCH (08:27)
[2023-05-29] MEDS: Bumetanide 1 MG Tab PO SCH (08:27)
[2023-05-29] MEDS: Losartan 50 MG Tab PO SCH (08:27)
[2023-05-29] MEDS: Calcium Carbonate 500 MG Tab.Chew PO SCH (08:28)
[2023-05-29] MEDS: Lactobacillus Rhamnosus GG (Probiotic) Cap PO SCH (08:28)
[2023-05-29] MEDS: Labetalol 100 MG Tab PO SCH (08:28)
[2023-05-29] MEDS: guaiFENesin 600 MG Tab.ER PO SCH (08:28)
[2023-05-29] MEDS: COENZYME Q PO SCH (08:28)
[2023-05-29 12:36] VITALS: BP 120/58; PULSE 61
== END 2023-05-29 13:10 | DRG 563 ==
LOC: JP.ED 16:19 → JP.MS 20:14 → OBSVTOIN 05-23 12:59
PROVIDERS: ADMIT Registered Nurse; ATTEND Internal Medicine
DX: S42.032A Displaced fracture of lateral end of left clavicle, initial encounter for closed fracture (principal); I50.32 Chronic diastolic (congestive) heart failure; M35.3 Polymyalgia rheumatica; I10 Essential (primary) hypertension; I25.10 Atherosclerotic heart disease of native coronary artery without angina pectoris; E78.00 Pure hypercholesterolemia, unspecified; K21.9 Gastro-esophageal reflux disease without esophagitis; Z88.6 Allergy status to analgesic agent; M79.7 Fibromyalgia; M19.90 Unspecified osteoarthritis, unspecified site; E03.9 Hypothyroidism, unspecified; Z91.048 Other nonmedicinal substance allergy status; S82.831A Other fracture of upper and lower end of right fibula, initial encounter for closed fracture; W01.10XA Fall on same level from slipping, tripping and stumbling with subsequent striking against unspecified object, initial encounter; I48.0 Paroxysmal atrial fibrillation; E11.9 Type 2 diabetes mellitus without complications; K59.00 Constipation, unspecified; Z66 Do not resuscitate; W01.0XXA Fall on same level from slipping, tripping and stumbling without subsequent striking against object, initial encounter; I11.0 Hypertensive heart disease with heart failure; Z79.890 Hormone replacement therapy; Z98.49 Cataract extraction status, unspecified eye; Z79.899 Other long term (current) drug therapy; Z88.0 Allergy status to penicillin; Z88.1 Allergy status to other antibiotic agents; Z88.5 Allergy status to narcotic agent; Z88.8 Allergy status to other drugs, medicaments and biological substances; Z88.2 Allergy status to sulfonamides; Z91.018 Allergy to other foods; Y92.098 Other place in other non-institutional residence as the place of occurrence of the external cause; Z90.89 Acquired absence of other organs; Z86.73 Personal history of transient ischemic attack (TIA), and cerebral infarction without residual deficits; Z95.5 Presence of coronary angioplasty implant and graft; Z90.49 Acquired absence of other specified parts of digestive tract; Z98.890 Other specified postprocedural states; Z11.52 Encounter for screening for COVID-19
CPT/HCPCS: 0241U; 36415; 70450; 73030; 73610; 73630; 73700; 76377; 80048; 81001; 85025; 97110; 97116; 97161; 97165; 97530; 99285; 99284; A9270-GY; J1650; J7512